=== PATIENT | male | born 1970 | race Caucasian/White ===

== ENCOUNTER 2017-05-23 17:33 | Emergency (ER) | payer BC, SELFPAY ==
[2017-05-23 17:56] VITALS: BP 221/100; PULSE 106; RESP 22; TEMP 38.2; O2SAT 95; BMI 40.1
--- NOTE | 2017-05-23 18:25 | HMH.EDUTC ---
[facility] [place] Clinical Impression: Strep throat Disposition: Home, Self-Care Condition on Discharge: Good Instructions: DI for Strep Throat, Strep Throat, Strep Throat (Alternative Therapy) Additional Instructions: * Monitor Temp. Tylenol and/or Ibuprofen as needed. ER if fever is no less than 101 despite alternating Tylenol and Ibuprofen * Encourage fluids, water, Gatorade, powerade, pedialyte if /toddler/or child * Warm salt water gargles for throat irritation *Warm fluids *Sore throat lozenges *Sleep elevated *humidifier or vaporizer Lots of rest Increase fluids, water, Gatorade, powerade *change toothbrush and toothpaste 24-48 hours after starting to take antibiotics so you do not reinfect yourself Monitor Temp. Tylenol and/or Ibuprofen as needed. ER if fever is no less than 101 despite alternating Tylenol and Ibuprofen * Encourage fluids, water, Gatorade, powerade, pedialyte if /toddler/or child *Cold fluids, popsicles and ice cream may feel good on his throat * Follow up IMMEDIATELY for new or worsening of symptoms OR no noticeable improvement over the next 48-72 hours. 911 immediately for any life threatening symptoms such as chest pain or difficulty breathing Forms: Work/School Release Time of Disposition: 18:35 Medical Decision Making - Medical Records Medical records reviewed: Yes: I reviewed the patient's medical records. Vital Signs: 05/23/17 17:56 Temperature 100.7 F H Temperature Source Temporal Artery Scan Pulse Rate [Right Radial] 106 H Respiratory Rate 22 Blood Pressure [Right Arm] 221/100 Blood Pressure Mean [Right Arm] 140 02 Sat by Pulse Oximetry 95 Oxygen Delivery Method Room Air - Lab Data Lab results reviewed: Yes: I reviewed the patient's lab results. - Sridhar Inquiry Pt receiving controlled substance: No Sridhar was queried for this patient: No - Reevaluation(s) Time: 18:34 Reevaluation #1: Patient state that he has taken Penicillin before with no reaction [facility] [place] - General Stated complaint: Throat swollen, fever Mode of Arrival: Family Vehicle Source of Information: Patient Limitations: No Limitations Description of Symptoms (Recalled from Triage Doc. by RN): PT C/O SWOLLEN SORE THROAT. HEENT Symptoms (Recalled from RN notes): Yes (SWOLLEN SORE THROAT) Resp Symptoms (Recalled from RN notes): No Skin Symptoms (Recalled from RN notes): No MS Symptoms (Recalled from RN notes): No Functional Status (Recalled from RN notes): NA - History of Present Illness Provider Complaint: Patient state that yesterday he started getting sick State that his throat felt sore and he noticed that it was swelling State that today his throat continued to get worse and now this evening his throat is swollen red and he noticed white patches in the back of his throat State that he did this before when he had strep throat - Related Data Home Medications Medication Instructions Recorded Confirmed No Known Home Medications [No 05/23/17 05/23/17 Known Home Medications] Allergies Allergy/AdvReac Type Severity Reaction Status Date / Time No Known Allergies Allergy Verified 05/23/17 17:41 - Worker's Comp Is this a Worker's Comp case?: No H History I have reviewed the patient's past medical history: Yes Medical History: Reports:: Diabetes Mellitus Type 2 Denies:: Cancer, Diabetes Mellitus Type 1, MRSA Amputation: No Fractures: No - Social History Smoking Status: Current every day smoker Tobacco Type: cigarettes Alcohol Intake: never - Psychiatric History Expresses thoughts of harming self/others: None Suicide Plan Description: No Plan ROS Obtained: Yes All systems reviewed & no additional complaints - Constitutional Constitutional: Reports chills, Reports fever(s) - ENT Ears, Nose, Mouth, and Throat: Reports sore throat, Reports throat swelling - Respiratory Respiratory: Yes cough, No dyspnea Physical Exam - General General a
--- NOTE | 2017-05-23 18:32 | ED_ITS ---
[facility] [place] Clinical Impression: Strep throat Disposition: Home, Self-Care Condition on Discharge: Good Instructions: DI for Strep Throat, Strep Throat, Strep Throat (Alternative Therapy) Additional Instructions: * Monitor Temp. Tylenol and/or Ibuprofen as needed. ER if fever is no less than 101 despite alternating Tylenol and Ibuprofen * Encourage fluids, water, Gatorade, powerade, pedialyte if /toddler/or child * Warm salt water gargles for throat irritation *Warm fluids *Sore throat lozenges *Sleep elevated *humidifier or vaporizer Lots of rest Increase fluids, water, Gatorade, powerade *change toothbrush and toothpaste 24-48 hours after starting to take antibiotics so you do not reinfect yourself Monitor Temp. Tylenol and/or Ibuprofen as needed. ER if fever is no less than 101 despite alternating Tylenol and Ibuprofen * Encourage fluids, water, Gatorade, powerade, pedialyte if /toddler/or child *Cold fluids, popsicles and ice cream may feel good on his throat * Follow up IMMEDIATELY for new or worsening of symptoms OR no noticeable improvement over the next 48-72 hours. 911 immediately for any life threatening symptoms such as chest pain or difficulty breathing Forms: Work/School Release Time of Disposition: 18:35 Medical Decision Making - Medical Records Medical records reviewed: Yes: I reviewed the patient's medical records. Vital Signs: 05/23/17 17:56 Temperature 100.7 F H Temperature Source Temporal Artery Scan Pulse Rate [Right Radial] 106 H Respiratory Rate 22 Blood Pressure [Right Arm] 221/100 Blood Pressure Mean [Right Arm] 140 02 Sat by Pulse Oximetry 95 Oxygen Delivery Method Room Air - Lab Data Lab results reviewed: Yes: I reviewed the patient's lab results. - Sridhar Inquiry Pt receiving controlled substance: No Sridhar was queried for this patient: No - Reevaluation(s) Time: 18:34 Reevaluation #1: Patient state that he has taken Penicillin before with no reaction [facility] [place] HPI - General Stated complaint: Throat swollen, fever Mode of Arrival: Family Vehicle Source of Information: Patient Limitations: No Limitations Description of Symptoms (Recalled from Triage Doc. by RN): PT C/O SWOLLEN SORE THROAT. HEENT Symptoms (Recalled from RN notes): Yes (SWOLLEN SORE THROAT) Resp Symptoms (Recalled from RN notes): No Skin Symptoms (Recalled from RN notes): No MS Symptoms (Recalled from RN notes): No Functional Status (Recalled from RN notes): NA - History of Present Illness Provider Complaint: Patient state that yesterday he started getting sick State that his throat felt sore and he noticed that it was swelling State that today his throat continued to get worse and now this evening his throat is swollen red and he noticed white patches in the back of his throat State that he did this before when he had strep throat - Related Data Home Medications Medication Instructions Recorded Confirmed No Known Home Medications [No 05/23/17 05/23/17 Known Home Medications] Allergies Allergy/AdvReac Type Severity Reaction Status Date / Time No Known Allergies Allergy Verified 05/23/17 17:41 - Worker's Comp Is this a Worker's Comp case?: No [facility] History I have reviewed the patient's past medical history: Yes Medical History: Reports:: Diabetes Mellitus Type 2 Denies:: Cancer, Diabetes M
[2017-05-23 18:52] VITALS: BP 170/98; PULSE 78; RESP 20; TEMP 37.2; O2SAT 97
[2017-05-29 15:57] LABS: UTC Influenza A Antigen Negative (Negative); UTC Influenza B Antigen Negative (Negative); UTC Strep Screen (Rapid) Positive (Negative)
== END 2017-05-23 18:53 | disposition home or self-care (01) ==
PROVIDERS: Emergency Provider Nurse Practitioner; Family Provider Family Medicine
DX: J02.0 Streptococcal pharyngitis (principal); F17.210 Nicotine dependence, cigarettes, uncomplicated
CPT/HCPCS: 87804; 87880; 96372; 99202; 99203; J0561

== ENCOUNTER → 2018-06-14 19:02 | Outpatient (CLI) | payer BC, SELFPAY ==
[2018-06-14 19:27] LABS: Hemoglobin A1C 5.7 % (0.0-7.0)
[2018-06-14 19:34] LABS: Chol/HDL Ratio 5.3 (1-3.5); Cholesterol 171 mg/dL (140-200); HDL Cholesterol 32 mg/dL (27-67); LDL Cholesterol 106 mg/dL (0-130); T4 (Thyroxine) 10.7 ug/dl (4.7-13.3); Thyroid Stimulating Hormone 1.79 uIU/ml (0.358-3.740); Triglycerides 166 mg/dL (30-200); VLDL Cholesterol 33 mg/dL (0-40)
[2018-06-16 09:16] LABS: Creatinine, Urine 157.1 mg/dL (Not Estab.); Microalbumin, Urine 26.8 ug/mL (Not Estab.)
[2018-06-18 08:20] LABS: Vitamin D 25 Hydroxy 12.4 ng/mL (30.0-100.0)
== END ==
PROVIDERS: Visit Provider Nurse Practitioner Family
DX: E11.9 Type 2 diabetes mellitus without complications (principal)
CPT/HCPCS: 80061; 82043; 82570; 82652; 83036; 84436; 84443

== ENCOUNTER → 2018-06-22 12:53 | Outpatient (CLI) | payer BC, SELFPAY ==
[2018-06-22 14:35] LABS: Anion Gap 10.5 mEq/L (5-15); Blood Urea Nitrogen 21 mg/dL (7-18); Calcium 9.5 mg/dL (8.5-10.1); Carbon Dioxide 34 mmol/L (21.0-32.0); Chloride 97 mmol/L (98-107); Creatinine,Serum 1.32 mg/dL (0.70-1.30); Estimated Glomerular Filt Rate 58 ml/min (>60); GFR (African American) 71 ML/MIN (>60); Glucose 84 mg/dL (74-106); Potassium 4.5 mmoL/L (3.5-5.1); Sodium 137 mmol/L (136-145)
== END ==
PROVIDERS: PCP Nurse Practitioner Family; Visit Provider Internal Medicine Cardiovascular Disease
DX: I10 Essential (primary) hypertension (principal); R06.00 Dyspnea, unspecified; R94.31 Abnormal electrocardiogram [ECG] [EKG]; Z72.0 Tobacco use
CPT/HCPCS: 36415; 80048

== ENCOUNTER → 2018-07-20 11:41 | Outpatient (CLI) | payer BC, SELFPAY | PROVIDERS: PCP Emergency Medicine; Visit Provider Internal Medicine Cardiovascular Disease | DX: G47.33 Obstructive sleep apnea (adult) (pediatric) (principal); I10 Essential (primary) hypertension; R06.00 Dyspnea, unspecified; R06.01 Orthopnea; R94.31 Abnormal electrocardiogram [ECG] [EKG]; Z72.0 Tobacco use | CPT/HCPCS: 95806 ==

== ENCOUNTER → 2018-07-23 07:52 | Outpatient (CLI) | payer BC, SELFPAY ==
--- NOTE | 2018-07-23 07:57 | CT_ITS ---
CT chest wo con HISTORY: Shortness of air, cough, tobacco use ITS.REASON: Long-term tobacco abuse ORDERING PHYSICIAN: Antonino Du MD PATIENT AGE: 48 years COMPARISON: None Technique: Axial images obtained. Sagittal, and coronal reformatted images are also generated and reviewed. All CT scans at the facility use one or more dose reduction, viz: automated exposure control, ma/kV adjustment per patient size (including targeted exams where dose is matched to indication, i.e. head), or iterative reconstruction technique. FINDINGS: Normal heart size. There is mild dilatation of the ascending aorta measuring up to 4.3 cm in transverse dimension. No obvious coronary artery calcification. There are scattered small lymph nodes in the axilla with a few small mediastinal nodes. No enlarged nodes apparent. Hyperinflation with attenuation of the peripheral pulmonary vessels consistent with COPD. There is a flat-like density in the right middle lobe at 11 mm probably due to an area of scarring. A 3 mm noncalcified nodule present in the right lower lobe. There is mild diffuse bronchial thickening. No lobar consolidation or collapse is evident. There are 2 noncalcified nodular densities in the left lower lobe measuring 3 and 4 mm on axial image #73. An additional noncalcified 5 mm nodule is present in the left lower lobe posterior laterally image #68 fissural nodule noted on axial image #55 at 4 mm. Upper abdominal images show a few scattered small lymph nodes at the celiac axis measuring up to 13 mm. There is some mild wedging of T9 and T11 with sclerosis along the inferior endplate. A lucent lesion is present along the inferior left aspect of the T9 vertebral body. IMPRESSION: 1. Scattered small bilateral pulmonary nodules as detailed above which are probably benign. Recommend 6 month follow-up in this patient with smoking history and cough 2. Mild dilatation of ascending aorta at 4.3 cm. 3. Small lucent lesion involves the T9 vertebral body anteriorly and on the left. This is fairly well-circumscribed and probably benign. Follow-up suggested with the chest CT
== END ==
PROVIDERS: PCP Nurse Practitioner Family; Visit Provider Internal Medicine Cardiovascular Disease
DX: I10 Essential (primary) hypertension (principal); R06.00 Dyspnea, unspecified; R06.01 Orthopnea; R94.31 Abnormal electrocardiogram [ECG] [EKG]; Z72.0 Tobacco use
CPT/HCPCS: 71250

== ENCOUNTER → 2018-07-30 06:36 | Outpatient (CLI) | payer BC, SELFPAY ==
--- NOTE | 2018-07-30 06:37 | CA_ITS ---
PROCEDURE: 2-D M-mode and color Doppler study INDICATIONS FOR THE TEST: Chest pain COPDX Heart Murmur Tobacco SmokingX Palpitations Fatigue Syncope Edema HypertensionXDiabetes Mellitus Rheumatic Fever SOBXDOE ObesityXHyperlipidemia Family History HD Additional History ABN EKG,SUBSTANCE ABUSE PATIENT INFORMATION HEIGHT: 70 WEIGHT:285 GENDER: Male B/P:140/84 2-D/M-MODE INTERPRETATION: 2-D MEASUREMENTS OBSERVED VALUES IN CMS Right Ventricular Dimension (RVDd) 3.0 Interventricular Septum (Thickness)(IVsd) 1.4 Left Ventricular Internal Dimensions(LVIDd) 5.1 Left Ventricular Posterior Wall (Thickness)(LVPWd) 1.4 Aortic Root 3.8 Aortic Cusp Separation 2.0 Left Atrial Dimensions (LAD) 3.3 2D 1. Left atrium is mildly enlarged, left ventricle is normal size, mild concentric left ventricular hypertrophy, visually estimated ejection fraction 50%, endocardial surfaces are poorly visualized, there appears to be mild hypokinesis involving the distal septum and apical wall. A repeat study with Definity contrast is recommended 2. The right atrium and right ventricle are mildly enlarged with normal contractility. 3. The aortic valve is minimally thickened and fibrosed. 4. The mitral and tricuspid valve are grossly normal. 5. The pulmonic valve is poorly visualized . 6. No significant pericardial effusion noted. DOPPLER INTERROGATION: Doppler interrogation of the aortic, mitral and tricuspid valvular presence of mild mitral and tricuspid regurgitation, tricuspid regurgitation jet velocity is inadequate for calculation of the right ventricular systolic pressure, grade 1 diastolic dysfunction seen with tissue Doppler evidence of raised left atrial pressure. CONCLUSION: 1. Biatrial enlargement, normal left ventricular size, mild concentric left ventricular hypertrophy, visually estimated ejection fraction 50%, with segmental wall motion abnormality described above, endocardial surface of poorly visualized, repeat study with Definity contrast is recommended. 1 diastolic dysfunction seen with tissue Doppler evidence of raised left atrial pressure. 2. Mildly enlarged right ventricle with normal contractility. 3. Mild mitral and tricuspid regurgitation 4. No significant pericardial effusion noted.
--- NOTE | 2018-07-30 06:37 | CI_ITS ---
Cerebrovascular Exam Indications: 785.9 Bruit. IMPRESSIONS 1. The bilateral vertebral arteries are patent with normal antegrade flow. 2. Study suggests less than 20% stenosis involving the right internal carotid artery and the left internal carotid artery. 3. Tortuous carotid arteries seen bilaterally. Pt bifurcates high . Carotid duplex study. Complete study and Doppler flow study including spectral analysis, color and [place] scale imaging. Height: Height: 177.8cm. Height: 70in. Weight: Weight: 129.3kg. Weight: 284.4lb. Body mass index: BMI: 40.9kg/m^2. Body surface area: BSA: 2.58m^2. Location: Vascular laboratory. Patient status: Outpatient. Tables: Arterial flow: + +--------+--------+ Location V sys V ed + +--------+--------+ Right CCA - proximal 116cm/s 20.4cm/s + +--------+--------+ Right CCA - distal 77.8cm/s 24.4cm/s + +--------+--------+ Right ECA 95.3cm/s -------- + +--------+--------+ Right ICA - proximal 48.6cm/s 16cm/s + +--------+--------+ Right ICA - mid 81.9cm/s 28.7cm/s + +--------+--------+ Right ICA - distal 71.4cm/s 36.1cm/s + +--------+--------+ Right vertebral 35.8cm/s -------- + +--------+--------+ Left CCA - proximal 125cm/s 22.1cm/s + +--------+--------+ Left CCA - distal 83.8cm/s 18.7cm/s + +--------+--------+ Left ECA 100cm/s -------- + +--------+--------+ Left ICA - proximal 78.9cm/s 31.4cm/s + +--------+--------+ Left ICA - mid 69.5cm/s 23.4cm/s + +--------+--------+ Left ICA - distal 86.9cm/s 38.5cm/s + +--------+--------+ Left vertebral 37.5cm/s -------- + +--------+--------+ Velocity ratios: + + + + + + Right, V sys Right, V ed Left, V sys Left, V ed + + + + + + Max ICA/dist CCA 1.05 1.48 1.04 2.06 + + + + + + (Report amended ) Electronically signed by: Rajan aClvert [id number]
--- NOTE | 2018-07-30 06:37 | NM_ITS ---
CARDIOLITE SPECT MYOCARDIAL PERFUSION LEXISCAN, REST AND STRESS: [facility] REVIEW QGS EF AND WALL MOTION EVALUATION: QPS - PERFUSION EVALUATION HISTORY: Chest pain, Syncope, HTN, Tobacco use, Family history DOSE: 10.55 mCi technetium 99m mibi intravenously at rest followed by 32.9 mCi technetium 99m mibi following the intravenous ministration of 0.4 mg of Lexiscan. Resting blood pressure is 164/102. Stress blood pressure 153/86. FINDINGS: Ejection fraction is calculated to be 42%. Stress images reveal transient left ventricular dilatation with reduced ejection fraction throughout the inferior wall apex and a portion of the septum. Rest images reveal improved activity in the inferior apical septal wall with mild left ventricular dilatation IMPRESSION: High risk abnormal stress test test with transient left ventricular dilatation accompanied by a large degree of inferior wall apical and septal ischemia mixed with nontransmural myocardial infarction. Left ventricular dysfunction inferior apical hypokinesis.
--- NOTE | 2018-07-30 07:33 | HMH.ITSHM ---
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 []METOPROLOL LISINOPRIL VIT D2 VIT D3 ASA AMLODIPINE
== END ==
PROVIDERS: PCP Emergency Medicine; Visit Provider Internal Medicine Cardiovascular Disease
DX: I10 Essential (primary) hypertension (principal); R06.00 Dyspnea, unspecified; R06.01 Orthopnea; R94.31 Abnormal electrocardiogram [ECG] [EKG]; Z72.0 Tobacco use
CPT/HCPCS: 78452; 93017; 93306; 93880; A9502; J2785

== ENCOUNTER 2018-08-21 08:17 | Day surgery (SDC) | payer BC, SELFPAY ==
[2018-08-21] VITALS (13 sets, daily range): BP systolic 115–205; BP diastolic 71–124; PULSE 53–70; RESP 16–20; TEMP 36.6; O2SAT 92–100; BMI 41.4
--- NOTE | 2018-08-21 | IR_ITS ---
CARDIAC CATHETERIZATION DATE OF CATHETERIZATION:08/21/2018 10:52 AM PROCEDURES: 1. Left heart catheterization 2. Left ventriculogram 3. Selective coronary angiogram INDICATION FOR TEST: 1. Known coronary artery disease 2. Abnormal Myoview 3. Angina pectoris Informed consent was obtained prior to the procedure. COMPLICATIONS: None ESTIMATED BLOOD LOSS: Less than 10 ml. TECHNIQUE: One percent lidocaine used to anesthetize the right anterior aspect of the wrist. The right radial artery was accessed via the Seldinger technique. A 6 [place] sheath was placed in the right radial artery. 2.5 mg of verapamil, 800 mcg of nitroglycerin, 1mg Lidocaine and 5000 U Heparin were given through the arterial sheath. The trap catheter and JL 3.5 catheter was also used to perform left heart catheterization, left ventriculogram and selective coronary angiogram. At the end of the procedure the sheath was removed good hemostasis was achieved using Traclet band, patient was transferred to the postop holding area in stable condition . ANGIOGRAPHIC RESULTS: 1. The left main artery has distal 30% stenosis 2. The left anterior descending artery has an ostial 10-20% stenosis followed by mid vessel 30% stenosis 3. The circumflex artery gives rise to a large ramus intermedius which has an ostial 30% stenosis and mid vessel 10-20% stenoses are the true circumflex artery has tendon 20% stenoses 4. The right coronary artery is a dominant vessel and has proximal 20% mid vessel 30% stenoses distal 20 and 30% stenoses 5. The PASCUAL ventriculogram reveals preserved at 55% 6. The left ventricular end-diastolic pressure 20 mmHg IMPRESSION: 1. Mild to moderate coronary artery disease as described above 2. Preserved ejection fraction 3. Persistent elevated LVEDP consistent with diastolic dysfunction PLAN: 1. Medical management 2. Aggressive risk factor modification
[2018-08-21 09:06] LABS: Basophils # 0.1 K/mm3 (0-0.2); Basophils % 1.3 % (0.1-2.0); Eosinophils # 0.3 K/mm3 (0.0-0.4); Eosinophils % 3.6 % (0.1-12.0); Hematocrit 47.4 % (42.0-52.0); Hemoglobin 16.7 g/dL (14.1-18.0); Lymphocytes # 2.3 K/mm3 (0.7-4.5); Lymphocytes % 29.8 % (10-50); Mean Corpuscular HGB Conc 35.3 g/dL (31.8-35.4); Mean Corpuscular Hemoglobin 30.9 pg (27.0-31.2); Mean Corpuscular Volume 87.7 fl (80-94); Mean Platelet Volume 7.6 fl (7.4-10.4); Monocytes # 0.7 K/mm3 (0.1-1.0); Monocytes % 8.7 % (1.7-9.3); Neutrophils # 4.3 K/mm3 (1.8-7.8); Neutrophils % 56.5 % (37.0-80.0); Platelet Count 338 K/mm3 (142-424); Red Cell Distribution Width 13.2 % (11.5-17.5); White Blood Count 7.6 K/mm3 (4.8-10.8)
[2018-08-21 09:10] LABS: Anion Gap 11.6 mEq/L (5-15); Blood Urea Nitrogen 22 mg/dL (7-18); Calcium 8.6 mg/dL (8.5-10.1); Carbon Dioxide 30 mmol/L (21.0-32.0); Chloride 102 mmol/L (98-107); Creatinine Clearance Estimated 82 mL/min (50-200); Creatinine,Serum 1.16 mg/dL (0.70-1.30); Estimated Glomerular Filt Rate 68 ml/min (>60); GFR (African American) 82 ML/MIN (>60); Glucose 92 mg/dL (74-106); Potassium 3.6 mmoL/L (3.5-5.1); Sodium 140 mmol/L (136-145)
== END 2018-08-21 14:54 | disposition home or self-care (01) ==
LOC: CATHLAB 08:18
PROVIDERS: PCP Emergency Medicine; Visit Provider Internal Medicine
DX: I25.118 Atherosclerotic heart disease of native coronary artery with other forms of angina pectoris (principal); I50.30 Unspecified diastolic (congestive) heart failure; I11.0 Hypertensive heart disease with heart failure; Z72.0 Tobacco use; E66.01 Morbid (severe) obesity due to excess calories; Z68.41 Body mass index [BMI] 40.0-44.9, adult; Z82.49 Family history of ischemic heart disease and other diseases of the circulatory system; Z79.899 Other long term (current) drug therapy
CPT/HCPCS: 80048; 85025; 93458; 99152; C1725; C1760; C1769; J1644

== ENCOUNTER 2020-05-18 11:09 | Emergency (ER) | payer BC, SELFPAY ==
[2020-05-18 11:17] VITALS: BP 165/70; PULSE 84; RESP 16; TEMP 36.8; O2SAT 98; BMI 25.8
[2020-05-18 11:30] VITALS: BP 165/70; PULSE 84; RESP 16; TEMP 36.8; O2SAT 98; BMI 25.7
--- NOTE | 2020-05-18 11:45 | XR_ITS ---
PROCEDURE: XR THORACIC SPINE 3V CLINICAL INDICATION: pain COMPARISON: CR CXR2V XR chest 2V from 06/12/[address] chest wo con from 07/23/2018 FINDINGS: There are degenerative changes in the thoracic spine at multiple levels. No acute fracture or dislocation evident there is mild chronic wedging T9. No lytic or blastic change. IMPRESSION: Chronic changes, no acute finding. Dictated by: Rajan Calvert MD 05/18/2020 12:12 Rajan Calvert MD in [place] 05/18/2020 12:12
--- NOTE | 2020-05-18 11:57 | HMH.EDUTC ---
[facility] [place] Clinical Impression: Thoracic back pain Qualifiers: Chronicity: acute Back pain laterality: midline Qualified Code(s): M54.6 - Pain in thoracic spine Disposition: Home, Self-Care Condition on Discharge: Good Instructions: DI for Thoracic Back Pain, Thoracic Back Pain Additional Instructions: Go home and rest. It would be best if you rested tomorrow too. No heavy lifting. No twisting. Take the oral medications as directed. The muscle relaxer (robaxin) will make you drowsy, so don't drive or operate heavy machinery after taking it. Don't start the oral steroids (medrol dose pack) until tomorrow, since you had the shots in here today. Follow up with your regular doctor. GO TO THE ER FOR ANY WORSENING SYMPTOMS OR CONCERN, ESPECIALLY BOWEL OR BLADDER ISSUES, SADDLE AREA NUMBNESS, FEVER, ETC Prescriptions: methylPREDNISolone [Medrol] 4 mg PO DIRECTED 6 Days #21 tab.ds.pk Transmission Status: Received by [id number] Methocarbamol [Robaxin 500mg Tab] 500 mg PO BIDP PRN #30 tab PRN Reason: Muscle Spasm Transmission Status: Received by [id number] Referrals: Tony Hester MD [Primary Care Provider] - Time of Disposition: 12:53 Medical Decision Making - Medical Records Medical records reviewed: No: I reviewed the patient's medical records. - Sridhar Inquiry Pt receiving controlled substance: No Vital Signs: 05/18/20 11:17 05/18/20 11:30 05/18/20 12:54 Temperature 98.3 F 98.3 F 98.3 F Temperature Source Oral Oral Pulse Rate 84 Pulse Rate [Right] 84 84 Respiratory Rate 16 16 16 Blood Pressure 165/70 H Blood Pressure [Right Arm] 165/70 H 165/70 H Blood Pressure Mean [Right Arm] 101 101 Blood Pressure Source [Right Arm] Automatic Cuff Automatic Cuff Blood Pressure Position [Right Arm] Sitting Sitting 02 Sat by Pulse Oximetry 98 98 Oxygen Delivery Method Room Air Room Air Orders (Tests/Meds): ED MEDICATIONS Discontinued Medications Generic Name Dose Route Start Last Admin Trade Name Freq PRN Reason Stop Dose Admin Ketorolac Tromethamine 60 mg 05/18/20 12:25 05/18/20 12:30 Ketorolac 60mg/2ml Vial IM 05/18/20 12:26 60 mg ONCE ONE Administration Methylprednisolone Sodium Succinate 125 mg 05/18/20 12:25 05/18/20 12:30 Methylprednisolone Sod Succ 125mg Vial IM 05/18/20 12:26 125 mg ONCE ONE Administration - Radiology Data #1 Image(s): T-Spine Image Reviewed: Yes I reviewed the patient's radiology image, Yes I have reviewed radiologist's interpretation Preliminary Findings: Normal/NAD, No Fracture Seen [facility] [place] HPI - General Stated complaint: something popped back Time Seen by Provider: 05/18/20 11:57 Mode of Arrival: Ambulatory Source of Information: Patient Limitations: No Limitations Description of Symptoms (Recalled from Triage Doc. by RN): pt advises he was sitting at the table when he felt something pop in between his shoulders and is now having pain - History of Present Illness Provider Complaint: He states that yesterday he was eating dinner when he felt something pop in his upper back. Since then he has had pain and tenderness of the area between his shoulder blades. He denies any fever or chills. - Related Data Previous Rx's Medication Instructions Recorded cholecalciferol (vitamin D3) 125 5,000 unit PO DAILY #30 cap 06/18/18 mcg (5,000 unit) capsule ergocalciferol (vitamin D2) 1,250 50,000 unit PO QWEEK #4 cap 06/18/18 mcg (50,000 unit) capsule lisinopril 20 2 tab PO DAILY 30 Days #60 tab 06/20/18 mg-hydrochlorothiazide 12.5 mg tablet aspirin 81 mg tablet,delayed 81 mg PO DAILY #30 tab 06/22/18 release amlodipine 10 mg tablet 10 mg PO DAILY #30 tab 08/10/18 Acetaminophen 1,000 mg PO TID PRN #60 tab 04/16/19 Ibuprofen [Ibuprofen 600mg 600 mg PO Q6H #30 tab 04/16/19 Tablet] Methocarbamol [Robaxin 500mg Tab] 500 mg PO BIDP PRN #30 tab 05/18/20 methylPREDNISolone [Medrol]
[2020-05-18 12:54] VITALS: BP 165/70; PULSE 84; RESP 16; TEMP 36.8; O2SAT 98
== END 2020-05-18 12:58 | disposition home or self-care (01) ==
LOC: ER 11:17 → UTC 11:17
PROVIDERS: Emergency Provider Nurse Practitioner Family; PCP Emergency Medicine
DX: M54.6 Pain in thoracic spine (principal); I10 Essential (primary) hypertension; F17.210 Nicotine dependence, cigarettes, uncomplicated; Z79.899 Other long term (current) drug therapy
CPT/HCPCS: 72072; 96372; 99202; G0463

== ENCOUNTER → 2020-10-29 13:32 | Outpatient (CLI) | payer OTHER, SELFPAY ==
--- NOTE | 2020-10-29 13:40 | XR_ITS ---
PROCEDURE: XR CHEST 2V CLINICAL HISTORY: ATHEROSCLEROSIS OF [place] CORONARY ARTERY Shortness of breath, cough COMPARISON: CR CXR CHEST(2 VIEWS-NOT PORTABLE) from 05/10/2016 CR CXR2V XR chest 2V from 06/12/[address] chest wo con from 07/23/2018 FINDINGS: The cardiomediastinal silhouette and pulmonary vascularity are within normal limits. The lungs are clear without infiltrates, suspicious nodules, or pleural effusions. There is a small metallic density overlying the left apex. No acute bony findings. IMPRESSION: No acute findings. Dictated by: Rajan Calvert MD 10/29/2020 16:02 Rajan Calvert MD in [place] 10/29/2020 16:02
--- NOTE | 2020-10-29 14:18 | ECG_ITS ---
APPROVED REPORT Exam: Resting ECG HR:75 bpm ECG Measurements Heart Rate 75 AXES [place] 182 P 31 QRSd 102 QRS -5 QT 402 T 39 QTc 448 Conclusion Normal sinus rhythm Normal ECG Electronically signed by : Augustin Brown MD 10/30/2020 11:38:13
[2020-10-29 14:27] LABS: Basophils # 0.2 K/mm3 (0-0.2); Basophils % 1.9 % (0.1-2.0); Eosinophils # 0.3 K/mm3 (0.0-0.4); Eosinophils % 2.9 % (0.1-12.0); Hematocrit 49.4 % (42.0-52.0); Hemoglobin 16.6 g/dL (14.1-18.0); Lymphocytes # 2.9 K/mm3 (0.7-4.5); Lymphocytes % 30.2 % (10-50); Mean Corpuscular HGB Conc 33.5 g/dL (31.8-35.4); Mean Corpuscular Hemoglobin 28.7 pg (27.0-31.2); Mean Corpuscular Volume 85.8 fl (80-94); Mean Platelet Volume 8.2 fl (7.4-10.4); Monocytes # 0.7 K/mm3 (0.1-1.0); Monocytes % 7.2 % (1.7-9.3); Neutrophils # 5.6 K/mm3 (1.8-7.8); Neutrophils % 57.9 % (37.0-80.0); Platelet Count 290 K/mm3 (142-424); Red Blood Count 5.76 M/mm3 (4.60-6.20); Red Cell Distribution Width 14.4 % (11.5-17.5); White Blood Count 9.7 K/mm3 (4.8-10.8)
[2020-10-29 14:43] LABS: Alanine Aminotransferase 25 U/L (12-78); Albumin Level 4.3 g/dl (3.5-5.0); Albumin/Globulin Ratio 1.1 (1.1-1.8); Alkaline Phosphatase 102 U/L (38-126); Anion Gap 16.5 mEq/L (5-15); Aspartate Amino Transferase 31 U/L (17-59); Bilirubin,Total 0.5 mg/dl (0.2-1.3); Blood Urea Nitrogen 14 mg/dl (9-20); Calcium 9.1 mg/dl (8.4-10.2); Carbon Dioxide 31 mmol/L (22.0-30.0); Chloride 98 mmol/L (98-107); Chol/HDL Ratio 5.6 (1-3.5); Cholesterol 207 mg/dl (140-200); Estimated Glomerular Filt Rate 80 ml/min (>60); GFR (African American) 97 ML/MIN (>60); Globulin 3.8 g/dL (1.3-3.2); Glucose 90 mg/dl (74-100); HDL Cholesterol 37 mg/dl (40-60); Potassium 4.5 mmoL/L (3.5-5.1); Sodium 141 mmol/L (136-145); Total Protein,Serum 8.1 g/dl (6.3-8.2); Triglycerides 123 mg/dl (30-150); VLDL Cholesterol 25 mg/dL (0-40)
[2020-10-29 14:54] LABS: NT Pro Brain Natriuretic Pep. 81.6 pg/mL (0-125)
[2020-10-29 14:56] LABS: Direct LDL Cholesterol 138.04 mg/dL (100-129)
== END ==
PROVIDERS: PCP Internal Medicine Adolescent Medicine; Visit Provider Internal Medicine Adolescent Medicine
DX: R07.9 Chest pain, unspecified (principal); I25.118 Atherosclerotic heart disease of native coronary artery with other forms of angina pectoris
CPT/HCPCS: 36415; 71046; 80053; 80061; 83036; 83880; 85025; 93005

== ENCOUNTER → 2020-11-05 11:15 | Outpatient (CLI) | payer OTHER, SELFPAY ==
[2020-11-05 12:03] LABS: Anion Gap 11.5 mEq/L (5-15); Blood Urea Nitrogen 15 mg/dl (9-20); Calcium 8.7 mg/dl (8.4-10.2); Carbon Dioxide 31 mmol/L (22.0-30.0); Chloride 100 mmol/L (98-107); Estimated Glomerular Filt Rate 71 ml/min (>60); GFR (African American) 86 ML/MIN (>60); Glucose 223 mg/dl (74-100); Potassium 4.5 mmoL/L (3.5-5.1); Sodium 138 mmol/L (136-145)
== END ==
PROVIDERS: Internal Medicine Cardiovascular Disease; Visit Provider Internal Medicine
DX: R06.00 Dyspnea, unspecified (principal); R07.9 Chest pain, unspecified; R42 Dizziness and giddiness; I25.118 Atherosclerotic heart disease of native coronary artery with other forms of angina pectoris; I10 Essential (primary) hypertension; E66.9 Obesity, unspecified; I51.89 Other ill-defined heart diseases; Z72.0 Tobacco use
CPT/HCPCS: 36415; 80048

== ENCOUNTER → 2020-12-03 08:50 | Outpatient (CLI) | payer OTHER, SELFPAY ==
--- NOTE | 2020-12-03 08:51 | CA_ITS ---
APPROVED REPORT EXAM: Comprehensive 2D, Doppler, and color-flow Echocardiogram Automation Test Developer: Cecily Hodges, AYESHA, RVS Ht: 5 ft 10 in Wt: 313lbs BSA: 2.53 BP: 166/100 mmHg Indications: New onset fatigue, Smoker, Morbid obesity, Cp, HTN, Dizziness, CAD, DD, IMANI 2D Dimensions IVSd 1.07 cm LVEF (Visual) 63.40 % PWd 1.32 cm LA Volume 99.00 mL LVDd 5.57 cm LA Volume Index 39.701512 mL/m2 (M/F) 16-34 LVDs 3.63 cm Left Atrium 2.70 cm LVOT 1.97 cm (M/F) 1.5-2.5 Ascending Aorta 3.31 cm M-Mode Dimensions LA Diam 3.99 cm (1.9-4.0) LVDd 5.55 cm (3.5-5.7) Ao Diam 3.72 cm (2.0-3.7) LVDs 3.67 cm (3.5-5.7) EF (Teich) 62.10% EPSs 1.08 cm FS 33.90% EDV (Teich) 150.50 mL TAPSE 3.14 (<1.7) ESV (Teich) 57.00 mL LV Diastology E Decel Time 265.00 (160-240 msec) E/A Ratio 0.99 MED E' 7.60 (< 7 cm/sec) MED A' 10.20 cm/s E'/MED E' Ratio 13.07 (>14) LAT E' 12.10 (<10 cm/sec) LAT A' 5.20 cm/s E/LAT E' Ratio 8.21 (>14) Aortic Valve LVOT Max 151.00 (70-110 cm/s) LVOT VTI 23.74 cm AoV Peak Vikash. 165.00 (50-130 cm/s) AO Peak GR. 10.90 mmHg AO Mean GR. 6.00 (<5 mmHg) AO VTI 28.85 (18-25 cm) LESLY (VTI) 2.51 (2.5-4.5 cm2) Mitral Valve MV E Max Vikash. 99.00 (40-130 cm/s) MV A Velocity 100.00 (40-130 cm/s) E/A Ratio 0.99 MV Decel. Time 265.00 (160-240 ms) MV Mean Gr. 2.90 (<2mmHg) MV PHT 78.00 ms Tricuspid Valve TR P. Velocity 149.00 cm/s RAP Estimate 10.00 mmHg RVSP 18.90 mmHg Left Ventricle Left atrium is mildly enlarged, left ventricle is normal size, mild concentric left ventricular hypertrophy, visually estimated ejection fraction 55% with no regional wall motion abnormality, grade 1 diastolic dysfunction seen without tissue Doppler evidence of raise left atrial pressure. Right Ventricle Right atrium and right ventricle are normal size and contractility. Aortic Valve Aortic valve is minimally thickened and fibrosed, there is no aortic stenosis or aortic insufficiency. Mitral Valve Mitral valve leaflets are not well visualized, the leaflets are minimally thickened, there is no mitral stenosis, there is mitral regurgitation present which is difficult to quantify it is likely in the [id number] range. Tricuspid Valve Tricuspid valve grossly normal, there is trace tricuspid regurgitation, tricuspid regurgitation jet velocity is inadequate for calculation of the right ventricular systolic pressure. Pulmonic Valve Pulmonic valve is poorly visualized. Great Vessels Aortic root is normal size. Inferior vena cava is poorly visualized. Pericardium No significant pericardial effusion noted Conclusion 1. Mildly low left atrium, normal left ventricular size, mild concentric left ventricular hypertrophy, visually estimated ejection fraction 55% with no regional wall motion abnormality, grade 1 diastolic dysfunction seen without tissue Doppler evidence of raise left atrial pressure. 2. There is mitral regurgitation present which is difficult to quantify, which is likely in mild to moderate range. The mitral regurgitation jet is very eccentrically directed. 3. No significant pericardial effusion noted. Electronically signed by : Antonino Du MD 12/04/2020 12:14:52
== END ==
PROVIDERS: PCP Internal Medicine Adolescent Medicine; Visit Provider Internal Medicine Cardiovascular Disease
DX: I50.30 Unspecified diastolic (congestive) heart failure (principal); I11.0 Hypertensive heart disease with heart failure
CPT/HCPCS: 93306

== ENCOUNTER 2021-01-01 06:56 | Day surgery (SDC) | payer OTHER, SELFPAY ==
[2021-01-01 07:04] VITALS: BMI 44.9
[2021-01-01 07:22] VITALS: BP 144/87; PULSE 67; RESP 18; O2SAT 98
--- NOTE | 2021-01-01 07:29 | P.PN_ITS ---
[facility] Anesthesia Checklist - Patient Identification Patient Identification: Arm Band - Structural Data Admitted From: Home Planned Operative Procedure/s: SISI Consent for Planned Operative Procedure(s) Verified: Yes - NPO Status Verified Time NPO: 00:00 - Airway Assessment C-Spine Mobility Assessed: Yes TMJ Mobility Assessed: Yes Dentition: Poor Dentition - Neurological Assessment Level of Consciousness: Awake Hx Seizures: No Numbness or tingling in extremities: No - Anesthesia Plan Anesthesia Risk discussed: Yes Anesthesia Plan: Verified ASA Class: III Anesthesia Type: MAC [facility] History I have reviewed the patient's past medical history: Yes Medical History: Reports:: Coronary Artery Disease, Heart Murmur, Hypertension, Valvular Heart Disease Denies:: Cancer, Diabetes Mellitus Type 1, Diabetes Mellitus Type 2, Internal Pacemaker, MRSA, Seizures *Have you ever received a pneumonia vaccine?: No *Have you received a flu vaccine this season?: No Anesthesia experience/problems:: None Other Surgeries: Yes: No Previous Surgery, Cardiac Catheterization. No: Pacemaker Amputation: No Fractures: No - *Social History Smoking Status: Current every day smoker Tobacco Type: cigarettes # Packs/Day (cigarettes): 1 #Yrs smoked (if former smoker): 25 Alcohol Intake: never Alcohol Intake Frequency:: holidays/special occasions only Substance Use Type: denies use *Occupational Status:: other Housing: apartment Household Members: spouse *Travel in the last 8 weeks: None Family Hx:: Hypertension, Heart Attack, Stroke, Cancer, Diabetes
[2021-01-01 07:32] LABS: Basophils # 0.1 K/mm3 (0-0.2); Basophils % 1.6 % (0.1-2.0); Eosinophils # 0.3 K/mm3 (0.0-0.4); Eosinophils % 4.1 % (0.1-12.0); Hematocrit 49.6 % (42.0-52.0); Hemoglobin 15.7 g/dL (14.1-18.0); Lymphocytes # 2.4 K/mm3 (0.7-4.5); Lymphocytes % 30.8 % (10-50); Mean Corpuscular HGB Conc 31.6 g/dL (31.8-35.4); Mean Corpuscular Hemoglobin 29.9 pg (27.0-31.2); Mean Corpuscular Volume 94.5 fl (80-94); Mean Platelet Volume 9.3 fl (7.4-10.4); Monocytes # 0.6 K/mm3 (0.1-1.0); Monocytes % 7.8 % (1.7-9.3); Neutrophils # 4.4 K/mm3 (1.8-7.8); Neutrophils % 55.8 % (37.0-80.0); Platelet Count 331 K/mm3 (142-424); Red Blood Count 5.25 M/mm3 (4.60-6.20); White Blood Count 7.8 K/mm3 (4.8-10.8)
[2021-01-01 08:30] VITALS: BP 174/110; PULSE 68; RESP 18; O2SAT 100
[2021-01-01 09:00] VITALS: BP 127/74; PULSE 70; RESP 18; O2SAT 100
--- NOTE | 2021-01-01 09:14 | SUR.OPER ---
SISI aborted due to patient declining respiratory status.
[2021-01-01 09:30] VITALS: BP 147/99; PULSE 68; RESP 18; O2SAT 100
--- NOTE | 2021-01-01 09:33 | SUR.PHASEII ---
0882 procedure aborted r/t decompensation of Respiratory status called office for pulmonary consult outpatient 0900 bk at bedside
--- NOTE | 2021-01-08 11:59 | HMH.PROC ---
[facility] Procedure Note Procedure Note:: Mr. Mcdonald was brought to the cardiac [employer] for purposes of a transesophageal echocardiogram to further define his mitral regurgitation on 01/01/2021. After informed consent was obtained, patient received sedation per anesthesia with subsequent significant hypoxemia and respiratory distress. This was treated promptly without complications but resulted in aborting of the SISI procedure. Consideration will be given to repeating this in the future once patient's pulmonary status has been adequately treated.
== END 2021-01-01 09:35 | disposition home or self-care (01) ==
PROVIDERS: PCP Internal Medicine Adolescent Medicine; Visit Provider Internal Medicine Cardiovascular Disease
DX: I34.0 Nonrheumatic mitral (valve) insufficiency (principal); R93.1 Abnormal findings on diagnostic imaging of heart and coronary circulation; Z20.822 Contact with and (suspected) exposure to COVID-19; Z53.09 Procedure and treatment not carried out because of other contraindication
CPT/HCPCS: 85025; 93312; C9803; U0003; U0005

== ENCOUNTER → 2021-01-21 13:17 | Outpatient (CLI) | payer OTHER, SELFPAY | PROVIDERS: PCP Internal Medicine Adolescent Medicine; Visit Provider Internal Medicine Pulmonary Disease | DX: R06.00 Dyspnea, unspecified (principal) | CPT/HCPCS: 94060; 94618; 94727; 94729 ==

== ENCOUNTER → 2021-01-27 14:55 | Outpatient (CLI) | payer OTHER, SELFPAY ==
[2021-01-27 15:25] VITALS: PULSE 88; PULSE 90
--- NOTE | 2021-01-27 15:36 | CT_ITS ---
PROCEDURE: CT CHEST WO CON CLINICAL INDICATION: lung nodules COMPARISON: CT CHESTWO CT chest wo con from 07/23/2018 TECHNIQUE: Axial images obtained with sagittal and coronal reformats. All CT scans at the facility use one or more dose reduction, viz: automated exposure control, ma/kV adjustment per patient size (including targeted exams where dose is matched to indication, i.e. head), or iterative reconstruction technique. FINDINGS: HEART AND MEDIASTINAL STRUCTURES: Thyroid gland is slightly prominent and may be better evaluated with ultrasound if clinically warranted. It is incompletely imaged on this exam. No mediastinal or hilar mass or adenopathy. There are few small calcified lymph nodes. Coronary artery calcifications noted of the RCA. No change in the minimal prominence of the ascending aorta at approximately 4 cm. LUNGS AND PLEURAL SPACES: COPD changes. 3 mm noncalcified nodule right lower lobe series 3, image 45 unchanged. Calcified granuloma right lower lobe posteriorly. Small nodules previously described in the left lower lobe are unchanged. BONY STRUCTURES: There are degenerative changes in the thoracic spine. A lucent lesion is once again noted at T9 on the left not significantly changed. Bony sclerosis is present involving the mid and inferior aspect of T5 which has developed in the interval. A small Schmorl's node is present along the inferior endplate of T5 which is also developed since the previous exam. Sclerosis also present involving the anterior superior aspect of T8 also developed since the previous study with anterior superior osteophyte. UPPER ABDOMEN: Few scattered small celiac nodes and periportal nodes are present. The most prominent node is in the periportal region at 3.8 x 1.6 cm previously at 3.8 by 1.9 cm. ADDITIONAL FINDINGS: Small bilateral axillary nodes are present not significantly changed IMPRESSION: 1. No change in the small pulmonary nodules with COPD changes. No new suspicious nodules identified. 2. Degenerative changes of the thoracic spine with new areas of bony sclerosis involving the T5 and T8 vertebral body associated with Schmorl's nodes. The sclerosis may be related to the underlying degenerative changes. No change in the lucent lesion at T9. MRI of the thoracic spine without and with contrast may provide further evaluation as sclerotic metastasis is included in the differential diagnosis. 3. Other nonacute findings as described above. Dictated by: Rajan Calvert MD 01/28/2021 07:54 Rajan Calvert MD in [place] 01/28/2021 07:54
== END ==
PROVIDERS: PCP Internal Medicine Adolescent Medicine; Visit Provider Internal Medicine Pulmonary Disease
DX: R06.00 Dyspnea, unspecified (principal); R91.8 Other nonspecific abnormal finding of lung field
CPT/HCPCS: 71250; 94060; 94640; 94727; 94729

== ENCOUNTER → 2021-04-16 15:01 | Outpatient (CLI) | payer OTHER, SELFPAY | PROVIDERS: PCP Internal Medicine Adolescent Medicine; Visit Provider Internal Medicine Pulmonary Disease | DX: R06.00 Dyspnea, unspecified (principal) | CPT/HCPCS: 94762 ==

== ENCOUNTER → 2021-05-31 13:43 | Outpatient (CLI) | payer OTHER, SELFPAY ==
[2021-05-31 15:22] LABS: Chloride 95 mmol/L (98-107); Sodium 133 mmol/L (136-145)
[2021-05-31 15:23] LABS: Potassium 4.7 mmoL/L (3.5-5.1)
[2021-05-31 15:25] LABS: Blood Urea Nitrogen 19 mg/dl (9-20); Estimated Glomerular Filt Rate 59 ml/min (>60); GFR (African American) 71 ML/MIN (>60)
[2021-05-31 15:26] LABS: Anion Gap 12.7 mEq/L (5-15); Calcium 8.8 mg/dl (8.4-10.2); Carbon Dioxide 30 mmol/L (22.0-30.0); Glucose 145 mg/dl (74-100)
[2021-05-31 15:35] LABS: NT Pro Brain Natriuretic Pep. 38.1 pg/mL (0-125)
== END ==
PROVIDERS: Visit Provider Internal Medicine Cardiovascular Disease
DX: R06.02 Shortness of breath (principal); I25.10 Atherosclerotic heart disease of native coronary artery without angina pectoris; I10 Essential (primary) hypertension
CPT/HCPCS: 36415; 80048; 83880

== ENCOUNTER 2022-02-23 09:03 | Day surgery (SDC) | payer OTHER, SELFPAY ==
[2022-01-31 13:44] VITALS: BMI 47.7
[2022-02-23 09:17] VITALS: BP 159/83; PULSE 88; RESP 18; TEMP 36.6; O2SAT 94
[2022-02-23 10:11] VITALS: O2SAT 91
--- NOTE | 2022-02-23 10:21 | EXP.ANES.CKL ---
PFSH PFS Medical History Dyspnea Hyperlipidemia Hypertension Mitral regurgitation Rheumatoid arthritis Surgical History No significant past surgical history Family History Other Family history of cancer Family history of diabetes mellitus type II Family history of hypertension Social History Smoking Status: Current every day smoker tobacco type: cigarettes packs per day: 1 pack-years: 30 alcohol intake: never substance use type: denies use current occupational status: unemployed Travel in the last 8 weeks: None adopted: No caregiver/support person: No foster care: No household members: significant other housing: house lives independently: Yes marital status: single current occupational exposures/hazards: No caffeine: Yes special sally needs: No agree to transfusion: No do you feel safe at home: Yes victim of physical abuse: No victim of emotional abuse: No victim of sexual abuse: No would you like helpful sources: No [facility] Anesthesia Checklist Patient Identification Patient Identification: Arm Band Structural Data Admitted From: Home Planned Operative Procedure/s: colonoscopy Consent for Planned Operative Procedure(s) Verified: Yes Verified Documents: Surgical Consent and History and Physical NPO Status Verified Time NPO: 00:00 Additional verifications Anesthesia Reactions: No Hx Blood Transfusions: No Blood Transfusion Reaction: No Airway Assessment C-Spine Mobility Assessed: Yes TMJ Mobility Assessed: Yes Dentition: Poor Dentition Neurological Assessment Level of Consciousness: Awake and Alert Anesthesia Plan Anesthesia Risk discussed: Yes Anesthesia Plan: Verified ASA Class: III Anesthesia Type: MAC
[2022-02-23 10:45] VITALS: BP 84/45; PULSE 75; RESP 14; TEMP 36.7; O2SAT 92
--- NOTE | 2022-02-23 10:45 | HMH.SCOPE ---
Procedure: Date: 02/23/22 Patient Date of :: 1970 Procedure Performed:: Colonoscopy Indications:: Screening Performing Provider:: Grupo Ruiz MD Referring Provider:: Augustin Brown MD Sedation:: See RN notes Procedure:: After placing the patient in the left lateral decubitus position, the colonoscopy was gently inserted into the rectum and under direct visualization advanced to the cecum which was identified by transillumination in the right lower quadrant, identification of the ileocecal valve, appendiceal orifice, and cecal strap. Color, texture, mucosa, and anatomy of the colon were carefully examined with the scope. Findings:: Anal canal: normal Rectum: Sessile polyp less than 5 mm in size. Removed with cold snare polypectomy. Internal hemorrhoids Sigmoid colon: Three polyps 7-8 mm in size. Removed with cold snare polypectomy Descending colon: Sessile polyp less than 5 mm in size. Removed with cold snare polypectomy .Fair preparation Splenic flexure: normal Transverse colon: normal without polyps or inflammatory changes Hepatic flexure: Fair preparation Ascending colon: Fair preparation Cecum: Sessile polyp less than 5 mm in size. Removed with cold snare polypectomy. Fair preparation Terminal ileum: not visualized Impression: Polyp of cecum Polyp of descending colon Polyps of distal sigmoid colon Polyp of rectum Recommendations:: Await pathology results Repeat colonoscopy in 3 years Complications:: None Estimated blood obtained (mL): 0
[2022-02-23 11:00] VITALS: BP 99/50; PULSE 77; RESP 16; O2SAT 95
[2022-02-23 11:15] VITALS: BP 110/67; PULSE 69; RESP 18; O2SAT 99
== END 2022-02-23 11:30 | disposition home or self-care (01) ==
PROVIDERS: PCP Internal Medicine Adolescent Medicine; Visit Provider Internal Medicine
PROC: 0DJD8ZZ Inspection of Lower Intestinal Tract, Via Natural or Artificial Opening Endoscopic (ICD-10-PCS; CPT 45378; principal; 2022-02-23 10:00)
DX: Z12.11 Encounter for screening for malignant neoplasm of colon (principal); K63.5 Polyp of colon; Z72.0 Tobacco use
CPT/HCPCS: 45385

== ENCOUNTER → 2022-03-02 10:12 | Outpatient (CLI) | payer OTHER, SELFPAY ==
--- NOTE | 2022-03-02 10:15 | XR_ITS ---
FINAL REPORT CLINICAL HISTORY: knee pain FINDINGS: 3 views of the left knee were obtained. There is no acute fracture or dislocation. There are mild degenerative changes. There is mild lateral patellar subluxation. There is no soft tissue abnormality. IMPRESSION: Mild degenerative change. Reviewed, Interpreted and Dictated by Adolfo Brock III, MD Transcribed by Kg Ansari Authenticated and [facility]
--- NOTE | 2022-03-02 10:15 | XR_ITS ---
FINAL REPORT CLINICAL HISTORY: knee pain FINDINGS: 3 views of the right knee were obtained. There is no acute fracture or dislocation. There is mild degenerative change. There is mild lateral patellar subluxation. A small joint effusion is present. IMPRESSION: Mild degenerative change with small joint effusion. Reviewed, Interpreted and Dictated by Adolfo Brock III, MD Transcribed by Kg Ansari Authenticated and . [facility]
== END ==
PROVIDERS: PCP Internal Medicine Adolescent Medicine; Visit Provider Orthopaedic Surgery
DX: M25.561 Pain in right knee (principal); M25.562 Pain in left knee
CPT/HCPCS: 73562

== ENCOUNTER → 2022-04-05 12:36 | Outpatient (CLI) | payer OTHER, SELFPAY ==
--- NOTE | 2022-04-05 12:37 | MR_ITS ---
FINAL REPORT CLINICAL HISTORY: right knee pain x 2 years after fall anterior and medial knee pain FINDINGS: Multiplanar MR imaging of the right knee was performed without contrast. There is a probable tear of the posterior horn of the medial meniscus. The lateral meniscus appears intact without evidence of meniscal tear. The anterior cruciate ligament appears intact. There is abnormal signal of the posterior cruciate ligament which is likely a partial tear. The medial collateral ligament and lateral ligamentous complex are intact. The quadriceps tendon appears intact. There is foci of patellar tendinitis. There is no evidence of fracture. There are mild degenerative changes. There is moderate medial compartment chondromalacia. There is a subchondral cyst in the proximal tibia. A small joint effusion is seen. The musculature is intact. No soft tissue mass or cyst is identified. IMPRESSION: Probable tear of the posterior horn of the medial meniscus. Abnormal signal of the posterior cruciate ligament, likely a partial tear. Foci of patellar tendinitis. Reviewed, Interpreted and Dictated by Adolfo Brock III, MD Transcribed by Melly Jones Authenticated and [facility][1]
== END ==
PROVIDERS: PCP Internal Medicine Adolescent Medicine; Visit Provider Orthopaedic Surgery
DX: M25.561 Pain in right knee (principal); M23.91 Unspecified internal derangement of right knee
CPT/HCPCS: 73721

== ENCOUNTER → 2022-07-27 10:58 | Outpatient (CLI) | payer OTHER, SELFPAY ==
--- NOTE | 2022-07-27 11:08 | ECG_ITS ---
APPROVED REPORT Exam: Resting ECG HR:70 bpm ECG Measurements Heart Rate 70 AXES IA 191 P 32 QRSd 102 QRS -22 QT 376 T 63 QTc 396 Conclusion SINUS RHYTHM BORDERLINE LEFT AXIS DEVIATION [QRS AXIS < -20] NONSPECIFIC T-WAVE ABNORMALITY BORDERLINE ECG UNCONFIRMED REPORT Electronically signed by : Augustin Brown MD 07/27/2022 21:17:26
--- NOTE | 2022-07-27 11:30 | XR_ITS ---
FINAL REPORT CLINICAL HISTORY: cough, sob, smoker, chest hurts all the time, pre op COMPARISON: 10/29/2020 FINDINGS: TWO-VIEW CHEST The heart size is normal. The mediastinum is normal. There is scarring at the bases. The lungs are otherwise clear. There is no pneumothorax. IMPRESSION: No acute cardiopulmonary process. Reviewed, Interpreted and Dictated by Rolf Conley MD Transcribed by Svetlana Olivares Authenticated and [facility]
[2022-07-27 11:43] LABS: Basophils # 0.1 K/mm3 (0-0.2); Basophils % 0.9 % (0.1-2.0); Eosinophils # 0.2 K/mm3 (0.0-0.4); Eosinophils % 2.3 % (0.1-12.0); Hematocrit 48.8 % (42.0-52.0); Hemoglobin 15.9 g/dL (14.1-18.0); Lymphocytes # 2.3 K/mm3 (0.7-4.5); Mean Corpuscular HGB Conc 32.6 g/dL (31.8-35.4); Mean Corpuscular Hemoglobin 31.1 pg (27.0-31.2); Mean Corpuscular Volume 95.2 fl (80-94); Mean Platelet Volume 8.8 fl (7.4-10.4); Monocytes # 0.5 K/mm3 (0.1-1.0); Monocytes % 6.7 % (1.7-9.3); Neutrophils # 4.9 K/mm3 (1.8-7.8); Neutrophils % 61.1 % (37.0-80.0); Platelet Count 234 K/mm3 (142-424); Red Blood Count 5.13 M/mm3 (4.60-6.20); Red Cell Distribution Width 13.4 % (11.5-17.5)
[2022-07-27 12:26] LABS: Chloride 97 mmol/L (98-107); Potassium 4.3 mmoL/L (3.5-5.1); Sodium 138 mmol/L (136-145)
[2022-07-27 12:29] LABS: Alanine Aminotransferase 41 U/L (12-78); Albumin Level 3.8 g/dl (3.5-5.0); Albumin/Globulin Ratio 1.2 (1.1-1.8); Alkaline Phosphatase 93 U/L (38-126); Anion Gap 15.3 mEq/L (5-15); Aspartate Amino Transferase 47 U/L (17-59); Bilirubin,Total 0.5 mg/dl (0.2-1.3); Blood Urea Nitrogen 16 mg/dl (9-20); Calcium 9.2 mg/dl (8.4-10.2); Carbon Dioxide 30 mmol/L (22.0-30.0); Estimated Glomerular Filt Rate 71 ml/min (>60); GFR (African American) 86 ML/MIN (>60); Globulin 3.3 g/dL (1.3-3.2); Glucose 140 mg/dl (74-100); Total Protein,Serum 7.1 g/dl (6.3-8.2)
== END ==
PROVIDERS: PCP Internal Medicine Adolescent Medicine; Visit Provider Orthopaedic Surgery
DX: Z01.818 Encounter for other preprocedural examination (principal); S83.241A Other tear of medial meniscus, current injury, right knee, initial encounter
CPT/HCPCS: 36415; 71046; 80053; 85025; 93005

== ENCOUNTER 2022-08-02 06:19 | Day surgery (SDC) | payer OTHER, SELFPAY ==
--- NOTE | 2022-08-01 08:55 | SUR.PREOP ---
0827- contacted patient to change procedure time to 0730. pt agreed to time change. reminded patient of npo after midnight and the need of a grab driver.
[2022-08-02] VITALS (12 sets, daily range): BP systolic 113–170; BP diastolic 68–85; PULSE 63–96; RESP 16–18; TEMP 36.2–43; O2SAT 91–96; BMI 47.3
--- NOTE | 2022-08-02 08:27 | EXP.ANES.CKL ---
[facility] Disclaimer: The information contained in this section may have been updated after the patient was seen, as this information can be updated by other users. Medical History Dyspnea Hyperlipidemia Hypertension Mitral regurgitation Rheumatoid arthritis Surgical History No significant past surgical history Family History Other Family history of cancer Family history of diabetes mellitus type II Family history of hypertension Social History Smoking Status: Current every day smoker tobacco type: cigarettes packs per day: 1 pack-years: 30 alcohol intake: never substance use type: denies use current occupational status: unemployed Travel in the last 8 weeks: None adopted: No caregiver/support person: No foster care: No household members: significant other housing: house lives independently: Yes marital status: single current occupational exposures/hazards: No caffeine: Yes special sally needs: No agree to transfusion: No do you feel safe at home: Yes victim of physical abuse: No victim of emotional abuse: No victim of sexual abuse: No would you like helpful sources: No [facility] Anesthesia Checklist Patient Identification Patient Identification: Arm Band Structural Data Admitted From: Home Planned Operative Procedure/s: Right Knee Arthroscopy Partial Medial Meniscectomy Consent for Planned Operative Procedure(s) Verified: Yes Verified Documents: Surgical Consent and History and Physical NPO Status Verified Time NPO: 00:00 Additional verifications Anesthesia Reactions: No Hx Blood Transfusions: No Blood Transfusion Reaction: No Airway Assessment C-Spine Mobility Assessed: Yes TMJ Mobility Assessed: Yes Dentition: Poor Dentition Neurological Assessment Level of Consciousness: Awake and Alert Anesthesia Plan Anesthesia Risk discussed: Yes Anesthesia Plan: Verified ASA Class: III Anesthesia Type: General
--- NOTE | 2022-08-02 08:28 | P.PNANES_ITS ---
[facility] Anesthesia Record Part I Anesthesia Record I Intake, IV Amount: 800 Estimated blood loss (mL): 0 Urine output (mL): 0 Blood Products used (#): none Blood Pressure: 170/81 SaO2: 91 Pulse Rate: 86 Respiratory Rate: 16 Temperature: 97.2 F Patient is:: Drowsy and Stable Stable to PACU at:: 08:25
--- NOTE | 2022-08-02 08:37 | EXP.OP.NOTE ---
Date of procedure: 08/02/22 Pre-op Diagnosis:: Right knee medial meniscus tear Post-op Diagnosis:: Right knee medial meniscus tear Procedure performed:: Right knee arthroscopy with partial medial meniscectomy Surgeon:: Kameron Thrasher MD Plate Mounter(s):: None COOK ENCHILADA:: Macario Brown Anesthesia: local and LMA Estimated blood loss (mL): 5 Clinical Note:: Magdy is a pleasant 52-year-old male who has been dealing with right knee pain over the past couple years since he felt a pop in his knee when he fell. A right knee cortisone injection in March provided temporary relief but his pain returned. An MRI in March of the right knee revealed undersurface flap tear posterior horn of the medial meniscus with mild medial and patellofemoral degenerative changes with a small effusion. We discussed all the risks, benefits and alternatives to right knee arthroscopy for partial medial meniscectomy. He agreed to proceed and a surgical consent form was signed. Operative findings:: Right knee undersurface flap tear posterior horn medial meniscus with significant fraying of the inner edge of the posterior horn. Mild medial compartment and trochlea chondromalacia. Cruciate ligaments intact. Lateral meniscus intact. Operative note:: The patient was seen in the preoperative holding area. The right knee was marked to confirm the correct operative site. He was seen by anesthesia. He received Ancef 2 g IV prophylactic antibiotics within 1 hour of incision time. He was brought back to the OR. General anesthesia induced without difficulty. Right lower extremity prepped and draped in the usual sterile fashion. Timeout performed to confirm right knee arthroscopy on patient Magdy Mcdonald. I made an anterolateral viewing portal with an 11 blade scalpel. Arthroscope was introduced into the knee joint. I then made an anterior medial portal localizing this with a spinal needle and this incision was made with the 11 blade as well. Dilated with a trocar. Diagnostic arthroscopy commenced. Evaluation of the medial compartment revealed complex tear posterior horn medial meniscus with undersurface flap tear and significant fraying of the inner edge. We performed a partial medial meniscectomy using a straight biter and a 3.5 mm resector shaver to resect the undersurface flap tear. We resected the inner third of the posterior horn the medial meniscus to remove the fraying back to a smooth stable border. There were some grade II-III chondromalacia central aspect of the trochlea that was treated with a shaver to remove any unstable flaps back to a smooth stable border. Mild grade I-II chondromalacia central aspect of the medial tibial plateau debrided as well. Cruciate ligaments were seen to be intact. He was placed in the [id number] position. Evaluation of the lateral compartment revealed fraying of the inner edge of the lateral meniscus that was debrided with a shaver but no significant lateral meniscus tear. Very minimal chondromalacia of the lateral compartment. Evaluation of the patellofemoral compartment revealed some diffuse grade II chondromalacia of the trochlea with no significant cartilage flaps and no full-thickness cartilage loss. At this time arthroscopy instruments were removed from the joint. Arthroscopy fluid suctioned and drained from the joint. Portals were closed with 4-0 Monocryl subcuticular sutures. I injected 20 cc of half percent Naropin from the superolateral approach for local anesthetic. Sterile dressings applied 4 x 4's, Steri-Strips, ABD, soft roll and an Ashkan bandage. Anesthesia reversed without difficulty and transferred to recovery in stable condition. All sponge needle counts correct x2. Tourniquet time (min): 0 Condition: stable Disposition: PACU Specimens:: None Complications:: None
--- NOTE | 2022-08-02 09:15 | SUR.PHASEII ---
Reviewed DC paperwork w/ patient and family members. Pt sent home w/ crutches and incentive spirometer. Instructed pt on proper use of IS, pt demonstrated proper use.
--- NOTE | 2022-08-02 09:46 | EXP.ANES.I ---
[facility] Anesthesia Record Part I Anesthesia Record I Intake, IV Amount: 1,000 Estimated blood loss (mL): 0 Urine output (mL): 0 Blood Products used (#): none Blood Pressure: 113/76 SaO2: 93 Pulse Rate: 63 Respiratory Rate: 16 Temperature: 97.4 F Patient is:: Drowsy and Stable Stable to PACU at:: 09:45
--- NOTE | 2022-08-02 13:03 | EXP.ANES.II ---
[facility] Anesthesia Record Part II Anesthesia Record Part II Discharge Time: 08:55 Destination: Surgical Day Care (OP Surgery) PACU nurse assessment reviewed?: Yes Patient Condition:: Good Anesthesia Complications:: None Swallowing reflex intact?: Yes Cyanosis?: No Blood Pressure: 130/79 Pulse Rate: 67 Temperature: 97.9 F Mental Status: Alert & Oriented Pain level:: 4 Nausea and/or vomitting:: None Intake, IV Amount: 0
== END 2022-08-02 09:30 | disposition home or self-care (01) ==
PROVIDERS: PCP Internal Medicine Adolescent Medicine; Visit Provider Orthopaedic Surgery
PROC: (CPT 29870; principal; 2022-08-02 07:30)
DX: M25.561 Pain in right knee (principal); F17.210 Nicotine dependence, cigarettes, uncomplicated; M17.0 Bilateral primary osteoarthritis of knee; I10 Essential (primary) hypertension; M23.221 Derangement of posterior horn of medial meniscus due to old tear or injury, right knee; Z79.899 Other long term (current) drug therapy; M94.261 Chondromalacia, right knee
CPT/HCPCS: 29881; 96374; J2405

== ENCOUNTER → 2023-02-22 09:13 | Outpatient (POV) | payer OTHER, SELFPAY ==
--- NOTE | 2023-02-22 10:13 | EXP.PAIN.OV ---
HPI Data of Consult Patient: new to practice Consult date: 02/22/23 Requesting Physician: Ele Christianson APRN Primary Care Provider: Augustin Brown MD Consult Narrative Reason for consult: Low back pain, bilateral leg pain History of present illness: Mr. Mcdonald is a 53 year old male who presents today as a new patient. He is a referral from Dr. Brown's office. Today he rates his pain a 10 out of 10. Patient states that his pain is primarily in his bilateral legs. He does describe this as a constant aching sensation that is worse with increased activity or ambulation. He also states that he experiences swelling and discoloration into his lower extremities. He states that he also has cramps that will wake him up in the middle of the night or even cause difficulty falling asleep due to the pain. Patient states that he does see a roadside mechanic in [place] Dr. Mackay and they have done diagnostics looking at his veins and arteries into his legs. He stated that some he was told had a little narrowing however does not know exact specifics or what it was called. Patient states his pain can be very tender to touch and does have a history of even SI related pain. He states the pain will frequently cause his left leg to give out. He states the pain does interfere with his ability perform activities of daily living such as cooking and cleaning. Patient has tried [id number] Tylenol and ibuprofen along with heat and ice and physical therapy in the past with no improvement. Patient is interested in any help we may be able to provide. His Sridhar has been reviewed and is appropriate. CC: Ele Christianson APRN [facility] Disclaimer: The information contained in this section may have been updated after the patient was seen, as this information can be updated by other users. Medical History Dyspnea Hyperlipidemia Hypertension Mitral regurgitation Rheumatoid arthritis Surgical History No significant past surgical history Family History Other Family history of cancer Family history of diabetes mellitus type II Family history of hypertension Social History Smoking Status: Current every day smoker tobacco type: cigarettes packs per day: 1 alcohol intake: never substance use type: denies use current occupational status: unemployed Travel in the last 8 weeks: None adopted: No caregiver/support person: No foster care: No household members: significant other housing: house lives independently: Yes marital status: single current occupational exposures/hazards: No caffeine: Yes special sally needs: No agree to transfusion: No do you feel safe at home: Yes victim of physical abuse: No victim of emotional abuse: No victim of sexual abuse: No would you like helpful sources: No Review of Systems Review of Systems Review of systems:: pertinent systems reviewed and negative unless documented below Review of systems (narrative): Review of Systems: General: No recent weight changes, no fever, no sleep disturbances Respiratory: No cough, no shortness of air, no recurring pulmonary infections Cardiovascular/peripheral vascular: No chest pain, no palpitations, no edema, no shortness of breath Gastrointestinal: No new onset incontinence, normal bowel movements reported Genitourinary: No new onset incontinence Musculoskeletal: Low back pain, bilateral leg pain Psychiatric: [Normal mood/affect] Neurological: [Denies weakness in extremities], [denies balance issues] Meds Home Medications and Allergies Home Medications Medication Instructions Recorded Confirmed Type aspirin 81 mg tablet,delayed 81 mg PO DAILY CAD 01/01/21 09/28/22 History release cholecalciferol (vitamin D
[2023-02-22 10:25] VITALS: BP 183/100; PULSE 90; RESP 18; O2SAT 94; BMI 47.5
== END | disposition home or self-care (01) ==
PROVIDERS: PCP Internal Medicine Adolescent Medicine; Visit Provider Nurse Practitioner Family
DX: M54.42 Lumbago with sciatica, left side (principal); G89.29 Other chronic pain; M79.604 Pain in right leg; M79.605 Pain in left leg
CPT/HCPCS: 99202; G0463

== ENCOUNTER → 2023-03-03 12:28 | Outpatient (CLI) | payer OTHER, SELFPAY ==
--- NOTE | 2023-03-03 12:48 | XR_ITS ---
FINAL REPORT CLINICAL HISTORY: [facility] [place] LEG PAIN FINDINGS: LUMBAR SPINE Five views demonstrate no acute fracture. There are mild degenerative changes with osteophytes. There is no malalignment. IMPRESSION: Mild degenerative changes. Reviewed, Interpreted and Dictated by Adolfo Brock III, MD Transcribed by Svetlana Olivares Authenticated and [facility]
== END ==
PROVIDERS: PCP Internal Medicine Adolescent Medicine; Visit Provider Nurse Practitioner Family
DX: M54.50 Low back pain, unspecified (principal); M79.661 Pain in right lower leg; M79.662 Pain in left lower leg
CPT/HCPCS: 72110

== ENCOUNTER → 2023-03-08 13:08 | Outpatient (POV) | payer OTHER, SELFPAY ==
--- NOTE | 2023-03-08 13:24 | EXP.PAIN.SOA ---
[facility] Pain Management SOAP Note Subjective:: Patient is a pleasant 53-year-old male who presents today for x-ray follow-up. We are currently treating the patient for low back pain, bilateral leg pain, chronic pain syndrome. Today he rates his pain a 7 out of 10. Patient denies any new trauma or injury. He states he continues to have chronic pain in his low back and legs. Patient at our last visit was prescribed ropinirole 0.25 mg at bedtime. Patient states that it did make him a little drowsy and that he took the medication for 3 days. He states that he did have stomach upset and did not even end up vomiting and that was the only change made. Patient discontinued this medication and went back to his normal habits without the nausea and vomiting. He does state that he is scheduled for his MRI on March 22. his Sridhar has been reviewed and is appropriate. Review of Systems: General: No recent weight changes, no fever, no sleep disturbances Respiratory: No cough, no shortness of air, no recurring pulmonary infections Cardiovascular/peripheral vascular: No chest pain, no palpitations, no edema, no shortness of breath Gastrointestinal: No new onset incontinence, normal bowel movements reported Genitourinary: No new onset incontinence Musculoskeletal: Low back pain, bilateral leg pain Psychiatric: [Normal mood/affect] Neurological: [Denies weakness in extremities], [denies balance issues] Objective:: Physical Exam: General: Alert and oriented x3, no acute distress, pleasant and cooperative Lungs: Respirations even and unlabored, symmetrical chest expansion Eyes: PERRL Musculoskeletal: Flexion and extension of lumbar [spine] somewhat guarded secondary to pain, [antalgic gait noted] Neurological: Speech clear, no gross sensory deficit Assessment:: Degenerative disc disease of lumbar spine with lumbar radiculopathy symptoms, chronic pain syndrome Plan:: Patient continues to experience pain in his low back and legs with limited range of motion. I discussed with the patient that we will wait to get his lumbar MRI imaging before deciding what are the best options for his care. Patient will return to clinic in 3 weeks for reevaluation of symptoms and plan of care. Patient has been instructed to contact the clinic with any concerns before the next appointment. Dr. Ravi has reviewed this note and agrees with this plan of care. This note was dictated using voice recognition software and make contain errors or omissions. [facility] Disclaimer: The information contained in this section may have been updated after the patient was seen, as this information can be updated by other users. Medical History Dyspnea Hyperlipidemia Hypertension Mitral regurgitation Rheumatoid arthritis Surgical History No significant past surgical history Family History Other Family history of cancer Family history of diabetes mellitus type II Family history of hypertension Social History (Updated 02/22/23 @ 10:25 by Chiara Comer RN) Smoking Status: Current every day smoker tobacco type: cigarettes packs per day: 1 alcohol intake: never substance use type: denies use current occupational status: unemployed Travel in the last 8 weeks: None adopted: No caregiver/support person: No foster care: No household members: significant other housing: house lives independently: Yes marital status: single current occupational exposures/hazards: No caffeine: Yes special sally needs: No agree to transfusion: No do you feel safe at home: Yes victim of physical abuse: No victim of emotional abuse: No victim of sexual abuse: No would you like helpful sources: No
[2023-03-08 13:25] VITALS: BP 131/86; PULSE 102; RESP 20; O2SAT 95; BMI 48.3
== END ==
PROVIDERS: PCP Internal Medicine Adolescent Medicine; Visit Provider Nurse Practitioner Family
DX: M51.16 Intervertebral disc disorders with radiculopathy, lumbar region (principal); G89.4 Chronic pain syndrome
CPT/HCPCS: 99212; G0463

== ENCOUNTER → 2023-03-22 17:04 | Outpatient (CLI) | payer OTHER, SELFPAY | LOC: RAD 17:04 | PROVIDERS: PCP Internal Medicine Adolescent Medicine; Visit Provider Nurse Practitioner Family | DX: M54.50 Low back pain, unspecified (principal); M79.604 Pain in right leg; M79.605 Pain in left leg ==

== ENCOUNTER → 2023-03-30 14:16 | Outpatient (POV) | payer OTHER, SELFPAY ==
[2023-03-30 14:43] VITALS: BP 137/84; PULSE 95; RESP 22; O2SAT 95; BMI 47.9
--- NOTE | 2023-03-30 14:44 | A.OFFVIS_ITS ---
[facility] Pain Management SOAP Note Subjective:: Patient is a pleasant 53-year-old male who presents today for follow-up. We are currently treating the patient for degenerative disc disease of lumbar spine with lumbar radiculopathy symptoms, chronic pain syndrome. Today he rates his pain a 9 out of 10. Patient denies any new trauma or injury. He does state that he was unable to tolerate his MRI of his lumbar spine. Patient states he has severe claustrophobia and that tried but ended up having a panic attack and did not do this imaging. Patient states he continues to have constant back and leg pain that is worse with increased ambulation or range of movement. Patient does have a cardiac history and sees a doctor in [place]. Patient states he has tried and failed conservative therapy such as oral medications, heat and ice, topicals, at home stretching and exercise for longer than 6 weeks. Patient has been prescribed oral pain medication such as Percocet however he could not tolerate these due to nausea. Patient does also state that he is even had fluid pills for his legs however those made him sick to his stomach. Patient was given a 2-week supply of ropinirole in the past however this made his stomach upset and stopped taking. Patient does state that he would still like to see what is going on in his lumbar spine. Patient is requesting whether or not he could try gabapentin. Patient states that his sister has very similar symptoms and that this medication does significantly improve her pain on a daily basis. His Sridhar has been reviewed and is appropriate. Review of Systems: General: No recent weight changes, no fever, no sleep disturbances Respiratory: No cough, no shortness of air, no recurring pulmonary infections Cardiovascular/peripheral vascular: No chest pain, no palpitations, no edema, no shortness of breath Gastrointestinal: No new onset incontinence, normal bowel movements reported Genitourinary: No new onset incontinence Musculoskeletal: Low back pain, leg pain Psychiatric: [Normal mood/affect] Neurological: [Denies weakness in extremities], [denies balance issues] Objective:: Physical Exam: General: Alert and oriented x3, no acute distress, pleasant and cooperative Lungs: Respirations even and unlabored, symmetrical chest expansion Eyes: PERRL Musculoskeletal: Flexion and extension of lumbar [spine] somewhat guarded secondary to pain, [antalgic gait noted] Neurological: Speech clear, no gross sensory deficit Assessment:: Degenerative disc disease of lumbar spine with lumbar radiculopathy symptoms, chronic pain syndrome Plan:: Patient continues to have significant pain in his low back and legs. Patient did have limited range of motion of his lumbar spine during today's visit. I have counseled the patient that I will reorder an MRI without contrast of his lumbar spine to be done in an open MRI machine such as at [facility]. Patient agrees with this plan of care. I have reviewed over with the patient r egarding gabapentin. I will send in a prescription of gabapentin 100 mg 3 times a day and provide a 2-week supply of this medication. Patient has been counseled to contact our office if this does provide additional improvement. Patient will return to clinic in 1 month following his MRI imaging for reevaluation of symptoms and plan of care. Patient has been instructed to contact the clinic with any concerns before the next appointment. Dr. Ravi has reviewed this note and agrees with this plan of care. This note was dictated using voice recognition software and make contain errors or omissions. [facility] Disclaimer: The information contained in this section may have been updated after the patient was seen, as this information can be updated by other users. Medical History Dyspnea Hyperlipidemia Hypertension Mitral regurgitation Rheumatoid arthritis Surgical History No significant past surgical history Family History Other Family history of cancer Family history of diabetes mellitus type II Family history of hypertension Social History (Updated 02/22/23 @ 10:25 by Chiara Comer RN) Smoking Status: Current every day smoker tobacco type: cigarettes packs per day: 1 alcohol intake: never substance use type: denies use current occupational status: unemployed Travel in the last 8 weeks: None adopted: No caregiver/support person: No foster care: No household members: significant other housing: house lives independently: Yes marital status: single current occupational exposures/hazards: No caffeine: Yes special sally needs: No agree to transfusion: No do you feel safe at home: Yes victim of physical abuse: No victim of emotional abuse: No victim of sexual abuse: No would you like helpful sources: No
== END | disposition home or self-care (01) ==
PROVIDERS: PCP Internal Medicine Adolescent Medicine; Visit Provider Nurse Practitioner Family
DX: M51.16 Intervertebral disc disorders with radiculopathy, lumbar region (principal); G89.4 Chronic pain syndrome
CPT/HCPCS: 99212; G0463

== ENCOUNTER → 2023-04-17 10:33 | Outpatient (POV) | payer OTHER, SELFPAY ==
--- NOTE | 2023-04-17 11:09 | EXP.PAIN.SOA ---
[facility] Pain Management SOAP Note Subjective:: Patient is a pleasant 53-year-old male who presents today for MRI denial. We are currently treating the patient for degenerative disc disease of lumbar spine with lumbar radiculopathy symptoms, chronic pain syndrome. Today he rates his pain a 10 out of 10. Patient denies any new trauma or injury. Patient denies any change location or type of pain he experiences. Patient continues to have constant low back and leg pain. Patient has tried in the past conservative treatment such as oral medication, heat and ice, topicals, physical therapy in the past. Patient denies any recent physical therapy. At our last visit we did also send in a 2-week dose of gabapentin 100 mg 3 times a day. Patient does state that this did seem to make a big improvement. He does state that there were a few days that he would miss the afternoon pill and so that he had been taking 1 in the morning and 2 at bedtime. Patient is asking if that is okay. His Sridhar has been reviewed and is appropriate. Review of Systems: General: No recent weight changes, no fever, no sleep disturbances Respiratory: No cough, no shortness of air, no recurring pulmonary infections Cardiovascular/peripheral vascular: No chest pain, no palpitations, no edema, no shortness of breath Gastrointestinal: No new onset incontinence, normal bowel movements reported Genitourinary: No new onset incontinence Musculoskeletal: Low back pain Psychiatric: [Normal mood/affect] Neurological: [Denies weakness in extremities], [denies balance issues] Objective:: Physical Exam: General: Alert and oriented x3, no acute distress, pleasant and cooperative Lungs: Respirations even and unlabored, symmetrical chest expansion Eyes: PERRL Musculoskeletal: Flexion and extension of lumbar [spine] somewhat guarded secondary to pain, [antalgic gait noted] Neurological: Speech clear, no gross sensory deficit Assessment:: Degenerative disc disease of lumbar spine with lumbar radiculopathy symptoms, chronic pain syndrome Plan:: I have counseled the patient that I will order physical therapy evaluation and treatment for his low back And leg symptoms. I will also send in a refill of the gabapentin 100 mg 3 times a day and provide a 1 month supply of this medication. I have counseled the patient that he can take 1 in the morning and 2 at night. Patient will return to clinic in 1 month following physical therapy for reevaluation of symptoms and plan of care. Patient has been instructed to contact the clinic with any concerns before the next appointment. Dr. Ravi has reviewed this note and agrees with this plan of care. This note was dictated using voice recognition software and make contain errors or omissions. [facility] Disclaimer: The information contained in this section may have been updated after the patient was seen, as this information can be updated by other users. Medical History Dyspnea Hyperlipidemia Hypertension Mitral regurgitation Rheumatoid arthritis Surgical History No significant past surgical history Family History Other Family history of cancer Family history of diabetes mellitus type II Family history of hypertension Social History Smoking Status: Current every day smoker tobacco type: cigarettes packs per day: 1 alcohol intake: never substance use type: denies use current occupational status: unemployed Travel in the last 8 weeks: None adopted: No caregiver/support person: No foster care: No household members: significant other housing: house lives independently: Yes marital status: single current occupational exposures/hazards: No caffeine: Yes special sally needs: No agree to transfusion: No do you feel safe at home: Yes victim of physical abuse: No victim of emotional abuse: No victim of sexual abuse: No would you like helpful sources: No
[2023-04-17 14:01] VITALS: BP 105/75; PULSE 81; RESP 18; O2SAT 96; BMI 48.3
== END | disposition home or self-care (01) ==
PROVIDERS: PCP Internal Medicine Adolescent Medicine; Visit Provider Nurse Practitioner Family
DX: M51.16 Intervertebral disc disorders with radiculopathy, lumbar region (principal); G89.4 Chronic pain syndrome
CPT/HCPCS: 99212; G0463

== ENCOUNTER 2023-04-17 11:14 | Outpatient (CLI) | payer OTHER, SELFPAY ==
[2023-04-17 11:44] LABS: Basophils # 0.1 K/mm3 (0-0.2); Basophils % 1.5 % (0.1-2.0); Eosinophils # 0.2 K/mm3 (0.0-0.4); Eosinophils % 2.3 % (0.1-12.0); Hematocrit 52.9 % (42.0-52.0); Hemoglobin 17.1 g/dL (14.1-18.0); Lymphocytes # 2.4 K/mm3 (0.7-4.5); Lymphocytes % 28.1 % (10-50); Mean Corpuscular HGB Conc 32.3 g/dL (31.8-35.4); Mean Corpuscular Hemoglobin 31.1 pg (27.0-31.2); Mean Corpuscular Volume 96.2 fl (80-94); Mean Platelet Volume 8.5 fl (7.4-10.4); Monocytes # 0.7 K/mm3 (0.1-1.0); Monocytes % 8.3 % (1.7-9.3); Neutrophils # 5.1 K/mm3 (1.8-7.8); Neutrophils % 59.7 % (37.0-80.0); Platelet Count 287 K/mm3 (142-424); Red Cell Distribution Width 13.1 % (11.5-17.5); White Blood Count 8.5 K/mm3 (4.8-10.8)
[2023-04-21 01:08] LABS: D001-IgE D pteronyssinus <0.10 kU/L (Class 0); D002-IgE D farinae <0.10 kU/L (Class 0); E001-IgE Cat Dander <0.10 kU/L (Class 0); E005-IgE Dog Dander <0.10 kU/L (Class 0); E072-IgE Mouse Urine <0.10 kU/L (Class 0); G002-IgE Bermuda Grass <0.10 kU/L (Class 0); G006-IgE Timothy Grass <0.10 kU/L (Class 0); I006-IgE Cockroach, German <0.10 kU/L (Class 0); Immunoglobulin E, Total 394 IU/mL (6-495); M001-IgE Penicillium chrysogen <0.10 kU/L (Class 0); M002-IgE Cladosporium herbarum <0.10 kU/L (Class 0); M003-IgE Aspergillus fumigatus <0.10 kU/L (Class 0); M006-IgE Alternaria alternata <0.10 kU/L (Class 0); T001-IgE Maple/Box Elder <0.10 kU/L (Class 0); T003-IgE Common Silver Birch <0.10 kU/L (Class 0); T006-IgE Cedar, Mountain <0.10 kU/L (Class 0); T007-IgE Oak, White <0.10 kU/L (Class 0); T008-IgE Elm, American <0.10 kU/L (Class 0); T010-IgE Walnut <0.10 kU/L (Class 0); T011-IgE Maple Leaf Sycamore <0.10 kU/L (Class 0); T014-IgE Cottonwood <0.10 kU/L (Class 0); T015-IgE Ash, White <0.10 kU/L (Class 0); T022-IgE Pecan, Hickory <0.10 kU/L (Class 0); T070-IgE White Mulberry <0.10 kU/L (Class 0); W001-IgE Ragweed, Short <0.10 kU/L (Class 0); W011-IgE Thistle, Russian <0.10 kU/L (Class 0); W014-IgE Pigweed, Common <0.10 kU/L (Class 0); W018-IgE Sheep Sorrel <0.10 kU/L (Class 0)
== END 2023-04-17 23:59 ==
LOC: LAB 11:15
PROVIDERS: PCP Internal Medicine Adolescent Medicine; Visit Provider Internal Medicine Pulmonary Disease
DX: J45.909 Unspecified asthma, uncomplicated (principal); R06.09 Other forms of dyspnea; J44.9 Chronic obstructive pulmonary disease, unspecified
CPT/HCPCS: 36415; 82785; 85025; 86003

== ENCOUNTER 2023-05-11 08:00 | Outpatient (RCR) | payer OTHER, SELFPAY | END 2023-05-11 09:00 | disposition home or self-care (01) | LOC: PT 08:00 | PROVIDERS: Visit Provider Nurse Practitioner Family | DX: M54.50 Low back pain, unspecified (principal); M79.604 Pain in right leg; M79.605 Pain in left leg | CPT/HCPCS: 97014; 97110; 97140; 97163; G0283 ==

== ENCOUNTER 2023-05-18 10:52 | Outpatient (POV) | payer OTHER, SELFPAY ==
--- NOTE | 2023-05-18 11:10 | EXP.PAIN.SOA ---
[facility] Pain Management SOAP Note Subjective:: Patient is a pleasant 53-year-old male who presents today for medication refill and follow-up. We are currently treating the patient for degenerative disc disease of lumbar spine with lumbar radiculopathy symptoms, chronic pain syndrome. Today he rates his pain a 7 out of 10. Patient denies any new trauma or injury. He does state that he continues to have constant pain they are in his low back. He states he has been going to physical therapy and that is helping however there has been others that have caused worsening pain. Patient states that the therapist did I had the tens unit and in 1 area he had very little sensitivity and she had to turn it up extremely high in order for him to even feel it. Patient also states that 1 other area that she pressed on with palpation because significant severe hot poker like sensations to go into his back. Patient does state that the therapist was wanting an MRI as well due to the condition of his back before proceeding forward with certain exercises. Patient is currently managed with gabapentin 100 mg 3 times a day however he states that it helps but sometimes he will get confused and forget when he is taken the medication. He is requesting if we can just do it in 1 pill. He states that 1 night he did take all 3 tablets at bedtime and felt like he slept better with a better overall improvement the next day. His Sridhar has been reviewed and is appropriate. Review of Systems: General: No recent weight changes, no fever, no sleep disturbances Respiratory: No cough, no shortness of air, no recurring pulmonary infections Cardiovascular/peripheral vascular: No chest pain, no palpitations, no edema, no shortness of breath Gastrointestinal: No new onset incontinence, normal bowel movements reported Genitourinary: No new onset incontinence Musculoskeletal: Low back pain Psychiatric: [Normal mood/affect] Neurological: [Denies weakness in extremities], [denies balance issues] Objective:: Physical Exam: General: Alert and oriented x3, no acute distress, pleasant and cooperative Lungs: Respirations even and unlabored, symmetrical chest expansion Eyes: PERRL Musculoskeletal: Flexion and extension of lumbar [spine] somewhat guarded secondary to pain, [antalgic gait noted] Neurological: Speech clear, no gross sensory deficit Assessment:: Degenerative disc disease of lumbar spine with lumbar radiculopathy symptoms, chronic pain syndrome Plan:: I will send in a prescription of gabapentin 300 mg at bedtime and provide a 1 month supply of this medication. I will also resubmit for the lumbar MRI without contrast. Patient has tried and failed conservative therapy and is still going through current physical therapy with no additional improvement. Patient will return to clinic in 1 month for reevaluation of symptoms and plan of care. Patient has been instructed to contact the clinic with any concerns before the next appointment. Dr. Ravi has reviewed this note and agrees with this plan of care. This note was dictated using voice recognition software and make contain errors or omissions. [facility] Disclaimer: The information contained in this section may have been updated after the patient was seen, as this information can be updated by other users. Medical History Dyspnea Hyperlipidemia Hypertension Mitral regurgitation Rheumatoid arthritis Surgical History No significant past surgical history Family History Other Family history of cancer Family history of diabetes mellitus type II Family history of hypertension Social History Smoking Status: Current every day smoker tobacco type: cigarettes packs per day: 1 alcohol intake: never substance use type: denies use current occupational status: unemployed Travel in the last 8 weeks: None adopted: No caregiver/support person: No foster care: No household members: significant other housing: house lives independently: Yes marital status: single current occupational exposures/hazards: No caffeine: Yes special sally needs: No agree to transfusion: No do you feel safe at home: Yes victim of physical abuse: No victim of emotional abuse: No victim of sexual abuse: No would you like helpful sources: No
[2023-05-18 12:34] VITALS: BP 135/99; PULSE 82; RESP 18; O2SAT 95; BMI 47.7
== END 2023-05-18 23:59 | disposition home or self-care (01) ==
PROVIDERS: PCP Internal Medicine Adolescent Medicine; Visit Provider Nurse Practitioner Family
DX: M51.16 Intervertebral disc disorders with radiculopathy, lumbar region (principal); G89.4 Chronic pain syndrome
CPT/HCPCS: 99212; G0463

== ENCOUNTER 2023-06-15 09:18 | Outpatient (POV) | payer OTHER, SELFPAY ==
[2023-06-15 09:31] VITALS: BP 159/78; PULSE 74; RESP 20; BMI 48.7
--- NOTE | 2023-06-15 12:05 | A.OFFVIS_ITS ---
[facility] Pain Management SOAP Note Subjective:: Patient is a pleasant 53-year-old male who presents today for MRI follow-up. Today he rates his pain a 7 out of 10. Patient denies any new trauma or injury. States that he continues to have chronic pain throughout his low back and legs. Patient is currently managed with gabapentin 300 mg at bedtime. He does state that this has seemed to help however occasionally on really bad days he feels like he needs a little bit more medicine. His Sridhar has been reviewed and is appropriate. Review of Systems: General: No recent weight changes, no fever, no sleep disturbances Respiratory: No cough, no shortness of air, no recurring pulmonary infections Cardiovascular/peripheral vascular: No chest pain, no palpitations, no edema, no shortness of breath Gastrointestinal: No new onset incontinence, normal bowel movements reported Genitourinary: No new onset incontinence Musculoskeletal: Low back pain, bilateral leg pain Psychiatric: [Normal mood/affect] Neurological: [Denies weakness in extremities], [denies balance issues] Objective:: Physical Exam: General: Alert and oriented x3, no acute distress, pleasant and cooperative Lungs: Respirations even and unlabored, symmetrical chest expansion Eyes: PERRL Musculoskeletal: Flexion and extension of lumbar [spine] somewhat guarded secondary to pain, [antalgic gait noted] Neurological: Speech clear, no gross sensory deficit [place] diagnostic and open MRI May 27, 2023 Lumbar MRI without contrast Findings: There is a grade 1 retrolisthesis of L4 on L5. Disc desiccation most pronounced at the L4-L5 and L5-S1 where there is acute bony edema seen along the endplates of the L4-5 asymmetrically worse on the right where there is likely ongoing body endplate remodeling/micro trabecular fracturing. There is a small amount of indurated discal signal present in this region. There is a small amount of bone edema noted along the endplates at the L5-S1 level worse on the left. Conus terminates at the level of L1 approximately. There are more chronic degenerative endplate changes noted within the lower thoracic spine and upper lumbar spine with Schmorl's node formations. There is clumping of the nerve roots T12-L1: No significant findings L1-2: Small disc osteophyte complex formation with mild articular facet disease and ligamentum flavum hypertrophy. Mild canal narrowing and foraminal narrowing L2-3: No significant findings L3-4: Small disc osteophyte complex formation with mild articular facet disease. Mild canal narrowing and mild to moderate foraminal narrowing L4-5: Disc osteophyte complex formation with moderate articular facet disease. Moderate foraminal narrowing and mild canal narrowing L5-S1: Disc osteophyte complex formation with moderate articular facet disease. Moderate to severe foraminal narrowing and mild canal narrowing Assessment:: Degenerative disc disease of lumbar spine with lumbar radiculopathy symptoms, chronic pain syndrome Plan:: I have reviewed over the findings of the patient's lumbar MRI and have discussed with the patient due to his chronic symptoms that I do believe he would benefit from a lumbar epidural at the L5-S1 level. Risk and benefits were discussed with the patient however at this time he would like more time to think on this option. I have counseled the patient that I will send in refills of his gabapentin and change it to 300 mg twice a day as needed. Patient is agreeable to this plan of care. We will follow-up at his next visit if he would like to try a lumbar epidural. I have also discussed with patient in future he may benefit from a intrathecal pain pump or spinal cord stimulator trial. Patient will return to clinic in 1 month for reevaluation of symptoms and plan of care. Patient has been instructed to contact the clinic with any concerns before the next appointment. Dr. Ravi has reviewed this note and agrees with this plan of care. This note was dictated using voice recognition software and make contain errors or omissions. [facility] Disclaimer: The information contained in this section may have been updated after the patient was seen, as this information can be updated by other users. Medical History Dyspnea Hyperlipidemia Hypertension Mitral regurgitation Rheumatoid arthritis Surgical History No significant past surgical history Family History Other Family history of cancer Family history of diabetes mellitus type II Family history of hypertension Social History Smoking Status: Current every day smoker tobacco type: cigarettes packs per day: 1 alcohol intake: never substance use type: denies use current occupational status: other Travel in the last 8 weeks: None adopted: No caregiver/support person: No foster care: No household members: significant other housing: house lives independently: Yes marital status: single current occupational exposures/hazards: No caffeine: Yes special sally needs: No agree to transfusion: No do you feel safe at home: Yes victim of physical abuse: No victim of emotional abuse: No victim of sexual abuse: No would you like helpful sources: No
== END 2023-06-15 23:59 | disposition home or self-care (01) ==
PROVIDERS: PCP Internal Medicine Adolescent Medicine; Visit Provider Nurse Practitioner Family
DX: M51.16 Intervertebral disc disorders with radiculopathy, lumbar region (principal); G89.4 Chronic pain syndrome
CPT/HCPCS: 99212; G0463

== ENCOUNTER 2023-06-19 07:41 | Outpatient (CLI) | payer OTHER, SELFPAY ==
--- NOTE | 2023-06-19 07:42 | CT_ITS ---
FINAL REPORT TECHNIQUE: Thin section axial images were obtained through the lungs using a low-dose technique per lung cancer screening protocol. Reconstruction images were obtained using the axial data. Exam was performed using dose reduction technique. CLINICAL HISTORY: lung cancer screening, current smoke 1.5ppd, smoker 35 years COMPARISON: 01/27/2021 FINDINGS: CTDLvol: 2.90 DLP: 106.29 Current smoker 52 pack year history Lungs: Several less than 4 mm left lower lobe nodules are stable and presumed benign given stability for greater than 2 years. A 5 mm left lower lobe nodule seen on image 67 was not well-seen on the prior exam. There is a subpleural 3 mm right lower lobe nodule on image 56 which is unchanged. The lungs are otherwise clear. There is no consolidation. Lymph nodes: No thoracic lymphadenopathy. Mediastinum: Heart size is normal. Pleura/pericardium: No pleural or pericardial effusion. Other: No acute abnormality in the upper abdomen. IMPRESSION: New, 5 mm left lower lobe nodule. Other stable pulmonary nodules. Lung RADS: 2 Recommendation: 12-month follow-up low-dose chest CT. Reviewed, Interpreted and Dictated by Aimee Ceron MD Transcribed by Leslie Araya Authenticated and [facility]
== END 2023-06-19 23:59 ==
LOC: RAD 07:42
PROVIDERS: PCP Internal Medicine Adolescent Medicine; Visit Provider Internal Medicine Pulmonary Disease
DX: F17.210 Nicotine dependence, cigarettes, uncomplicated (principal); Z12.2 Encounter for screening for malignant neoplasm of respiratory organs; R06.09 Other forms of dyspnea
CPT/HCPCS: 71271; 94060; 94727; 94729

== ENCOUNTER 2023-07-13 14:27 | Outpatient (POV) | payer OTHER, SELFPAY ==
[2023-07-13 14:58] VITALS: BP 118/73; PULSE 89; RESP 20; O2SAT 96; BMI 45.9
--- NOTE | 2023-07-13 15:11 | A.OFFVIS_ITS ---
[facility] Pain Management SOAP Note Subjective:: Patient is a pleasant 53-year-old male who presents today for medication refill and follow-up. Today he rates his pain a 5 out of 10. Patient denies any new trauma or injury. Patient is currently managed with gabapentin 300 mg twice a day. He denies any side effects from this medication. At our last visit we did discuss that he may benefit from lumbar epidural as well as possible trial in the future. Patient states today he is doing overall well with the increased dosage of his gabapentin and feels like right now he is maintaining. His Sridhar has been reviewed and is appropriate. Review of Systems: General: No recent weight changes, no fever, no sleep disturbances Respiratory: No cough, no shortness of air, no recurring pulmonary infections Cardiovascular/peripheral vascular: No chest pain, no palpitations, no edema, no shortness of breath Gastrointestinal: No new onset incontinence, normal bowel movements reported Genitourinary: No new onset incontinence Musculoskeletal: Low back pain Psychiatric: [Normal mood/affect] Neurological: [Denies weakness in extremities], [denies balance issues] Objective:: Physical Exam: General: Alert and oriented x3, no acute distress, pleasant and cooperative Lungs: Respirations even and unlabored, symmetrical chest expansion Eyes: PERRL Musculoskeletal: Flexion and extension of lumbar [spine] somewhat guarded secondary to pain, [antalgic gait noted] Neurological: Speech clear, no gross sensory deficit Assessment:: Degenerative disc disease of lumbar spine with lumbar radiculopathy symptoms Plan:: I will refill the patient's gabapentin 300 mg twice a day and provide a 2-month supply of this medication. Patient will return to clinic in 2 months for reevaluation of symptoms and plan of care. Patient has been instructed to contact the clinic with any concerns before the next appointment. Dr. Ravi has reviewed this note and agrees with this plan of care. This note was dictated using voice recognition software and make contain errors or omissions. [facility] Disclaimer: The information contained in this section may have been updated after the patient was seen, as this information can be updated by other users. Medical History Dyspnea Hyperlipidemia Hypertension Mitral regurgitation Rheumatoid arthritis Surgical History No significant past surgical history Family History Other Family history of cancer Family history of diabetes mellitus type II Family history of hypertension Social History Smoking Status: Current every day smoker tobacco type: cigarettes packs per day: 1 alcohol intake: never substance use type: denies use current occupational status: other Travel in the last 8 weeks: None adopted: No caregiver/support person: No foster care: No household members: significant other housing: house lives independently: Yes marital status: single current occupational exposures/hazards: No caffeine: Yes special sally needs: No agree to transfusion: No do you feel safe at home: Yes victim of physical abuse: No victim of emotional abuse: No victim of sexual abuse: No would you like helpful sources: No
== END 2023-07-13 23:59 | disposition home or self-care (01) ==
PROVIDERS: PCP Internal Medicine Adolescent Medicine; Visit Provider Nurse Practitioner Family
DX: M51.16 Intervertebral disc disorders with radiculopathy, lumbar region (principal)
CPT/HCPCS: 99212; G0463

== ENCOUNTER 2023-10-11 15:21 | Outpatient (POV) | payer OTHER, SELFPAY ==
[2023-10-11 15:47] VITALS: BP 149/86; PULSE 86; RESP 16; O2SAT 95; BMI 45.9
--- NOTE | 2023-10-11 16:02 | EXP.PAIN.SOA ---
[facility] Disclaimer: The information contained in this section may have been updated after the patient was seen, as this information can be updated by other users. Medical History Dyspnea Hyperlipidemia Hypertension Mitral regurgitation Rheumatoid arthritis Surgical History No significant past surgical history Family History Other Family history of cancer Family history of diabetes mellitus type II Family history of hypertension Social History Smoking Status: Current every day smoker tobacco type: cigarettes packs per day: 1 alcohol intake: never substance use type: denies use current occupational status: other Travel in the last 8 weeks: None adopted: No caregiver/support person: No foster care: No household members: significant other housing: house lives independently: Yes marital status: single current occupational exposures/hazards: No caffeine: Yes special sally needs: No agree to transfusion: No do you feel safe at home: Yes victim of physical abuse: No victim of emotional abuse: No victim of sexual abuse: No would you like helpful sources: No PM Subjective & Objective Subjective Subjective:: Patient is a pleasant 53-year-old male who presents today for medication refill and follow-up. Today he rates his pain a 6 out of 10. Patient does state that overall his back is doing well and much more manageable. Patient does state from our last visit he has ended up losing 30 pounds and is trying to eat better and that his sugar is better. Patient does state that he is having more pain in and around his right knee which is a chronic finding. Patient denies any new injuries in this location. Patient does also state he has had a couple teeth pulled and is going to be having some additional ones removed in future. Patient has tried injections in his knee in the past however they were very temporary and did not provide significant relief. Patient is currently managed with gabapentin 300 mg twice a day and did not any side effects from this medication. Patient does still have more tablets from his last prescription with about 10 remaining. Patient states he has not had to take this every single day twice a day. Patient is requesting if we get in a low-dose pain medication that he could just take as needed and not anything on a daily basis. His Sridhar has been reviewed and is appropriate. Review of Systems: General: No recent weight changes, no fever, no sleep disturbances Respiratory: No cough, no shortness of air, no recurring pulmonary infections Cardiovascular/peripheral vascular: No chest pain, no palpitations, no edema, no shortness of breath Gastrointestinal: No new onset incontinence, normal bowel movements reported Genitourinary: No new onset incontinence Musculoskeletal: Low back pain, right knee pain Psychiatric: [Normal mood/affect] Neurological: [Denies weakness in extremities], [denies balance issues] Pain at rest (0-10 scale): 6 Objective Objective:: Physical Exam: General: Alert and oriented x3, no acute distress, pleasant and cooperative Lungs: Respirations even and unlabored, symmetrical chest expansion Eyes: PERRL Musculoskeletal: Flexion and extension of lumbar [spine] somewhat guarded secondary to pain, [antalgic gait noted] Neurological: Speech clear, no gross sensory deficit Has patient had previous pain injection?: No Conservative treatment options previously tried: Home exercise plan Length of treatment: Longer than 6 weeks and Prescription medications Length of treatment: Longer than 6 weeks Meds Home Medications and Allergies Home Medications Medication Instructions Recorded Confirmed Type aspirin 81 mg tablet,delayed 81 mg PO DAILY CAD 01/01/21 10/11/23 History release cholecalciferol (vitamin D3) 125 5,000 unit PO DAILY Supplement 01/01/21 10/11/23 History mcg (5,000 unit) capsule ergocalciferol (vitamin D2) 1,250 50,000 unit PO QWEEK Supplement 01/01/21 10/11/23 History mcg (50,000 unit) capsule albuterol sulfate 90 mcg/actuation 1 inh inhalation QID PRN shortness 01/04/21 10/11/23 Rx aerosol inhaler of breath or wheezing #8.5 grams amlodipine 2.5 mg tablet 2.5 mg PO DAILY High blood 03/09/21 10/11/23 Rx pressure #30 tabs atorvastatin 40 mg tablet 40 mg PO DAILY Cholesterol #30 tabs 03/09/21 10/11/23 Rx furosemide 20 mg tablet 20 mg PO DAILY Fluid #30 tabs 03/09/21 10/11/23 Rx lisinopril 20 mg tablet 20 mg PO BID High blood pressure 04/16/21 10/11/23 History budesonide-formoterol HFA 160 2 puff inhalation BID Breathing 02/23/22 10/11/23 History mcg-4.5 mcg/actuation aerosol problems inhaler (Symbicort) spironolactone 25 mg tablet 25 mg PO DAILY Fluid 02/23/22 10/11/23 History (Aldactone) hydrocodone 5 mg-acetaminophen 325 1 tab PO Q4-6H PRN pain #20 tabs 08/04/22 10/11/23 Rx mg tablet ondansetron HCl 4 mg tablet 4 mg PO Q6H PRN nausea and 08/04/22 10/11/23 Rx vomiting #20 tabs budesonide-formoterol HFA 160 2 puff inhalation BID 90 days 04/03/23 10/11/23 Rx mcg-4.5 mcg/actuation aerosol #10.2 grams inhaler (Symbicort) ipratropium 0.5 mg-albuterol 3 mg 3 ml inhalation QID PRN shortness 04/03/23 10/11/23 Rx (2.5 mg base)/3 mL nebulization of breath or wheezing 90 days #270 soln mL gabapentin 100 mg capsule 100 mg PO TID #90 caps 04/17/23 10/11/23 Rx gabapentin 300 mg capsule 300 mg PO BID #60 caps 07/13/23 10/11/23 Rx gabapentin 300 mg capsule 300 mg PO BID #60 caps 09/18/23 10/11/23 Rx New Prescriptions to Start Prescriptions: Allergies Allergy/AdvReac Type Severity Reaction Status Date / Time No Known Allergies Allergy Verified 04/03/23 16:18 Assessment and Plan *Assessment and plan (1) Low back pain: Status: Acute Qualifiers: Chronicity: chronic Back pain laterality: bilateral Sciatica presence: with sciatica Sciatica laterality: sciatica of left side Qualified Code(s): M54.42 - Lumbago with sciatica, left side; G89.29 - Other chronic pain Category: Medical Code(s): M54.50 - Low back pain, unspecified (2) Bilateral leg pain: Status: Acute Category: Medical Code(s): M79.604 - Pain in right leg; M79.605 - Pain in left leg (3) Primary osteoarthritis of knees, bilateral: Status: Acute Category: Medical Code(s): M17.0 - Bilateral primary osteoarthritis of knee (4) Internal derangement of right knee: Status: Acute Category: Medical Code(s): M23.91 - Unspecified internal derangement of right knee Plan Patient is experiencing significant pain in his right knee as well as still some chronic pain in his low back. I have discussed with patient that I will send a 3-month supply of his gabapentin and after reviewing his kidney function we will do 30 tablets of tramadol 50 mg. Patient will return to clinic in 3 months for reevaluation of symptoms and plan of care. Risks and benefits of the medication have been explained in detail to the patient. The patient does understand the risk of dependence on the medication when given over a prolonged period. Patient has been advised of risks of oversedation with the prescribed medication. Narcan has been offered to the paitent in the event of oversedation. Patient has been advised that a family member should also be educated regarding administration of Narcan. The patient has been advised to consult with his/her primary care provider and pharmacist regarding drug-drug interaction of medications currently prescribed. Patient has been prescribed a controlled substance after being counseled on the medication, medication safety, and possible side effects. Opioid contract was reviewed and signed by the patient, and that they have agreed to all of the terms set forth by our compliance program. Patient has been instructed to contact the clinic with any concerns before the next appointment. Dr. Ravi has reviewed this note and agrees with this plan of care. This note was dictated using voice recognition software and make contain errors or omissions.
== END 2023-10-11 23:59 | disposition home or self-care (01) ==
PROVIDERS: PCP Internal Medicine Adolescent Medicine; Visit Provider Nurse Practitioner Family
DX: M54.42 Lumbago with sciatica, left side (principal); G89.29 Other chronic pain; M79.604 Pain in right leg; M79.605 Pain in left leg; M17.0 Bilateral primary osteoarthritis of knee; M23.91 Unspecified internal derangement of right knee; F17.210 Nicotine dependence, cigarettes, uncomplicated; Z79.899 Other long term (current) drug therapy
CPT/HCPCS: 99212; G0463

== ENCOUNTER 2024-01-11 08:29 | Outpatient (POV) | payer MEDICAID, SELFPAY ==
--- NOTE | 2024-01-11 08:37 | A.OFFVIS_ITS ---
[facility] Disclaimer: The information contained in this section may have been updated after the patient was seen, as this information can be updated by other users. Medical History Dyspnea Hyperlipidemia Hypertension Mitral regurgitation Rheumatoid arthritis Surgical History No significant past surgical history Family History Other Family history of cancer Family history of diabetes mellitus type II Family history of hypertension Social History Smoking Status: Current every day smoker tobacco type: cigarettes packs per day: 1 alcohol intake: never substance use type: denies use current occupational status: other Travel in the last 8 weeks: None adopted: No caregiver/support person: No foster care: No household members: significant other housing: house lives independently: Yes marital status: single current occupational exposures/hazards: No caffeine: Yes special sally needs: No agree to transfusion: No do you feel safe at home: Yes victim of physical abuse: No victim of emotional abuse: No victim of sexual abuse: No would you like helpful sources: No PM Subjective & Objective Subjective Subjective:: Patient is a pleasant 53-year-old male who presents today for medication refill and 3-month follow-up. Today he rates his pain a 8 out of 10. He denies any new injury or trauma from his last visit. He states today that it is still the same aches and pains including his low back with radiating symptoms into his legs and bilateral knees. Patient states overall he has been doing pretty good the last 3 months up until last week. He states for what ever reason he just felt like he had a lot more pain and that moving around was more difficult. He does state that his sugar and blood pressure are doing much better and that he has still been losing weight and now is weighing around 300 pounds. Patient is currently managed with gabapentin 300 mg twice a day and was given at his last visit 30 tablets of tramadol 50 mg as needed. 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 Patient does state that he has recently had his teeth pulled and that they did give him some Lortab and that that worked well for him. He states he does not take that on a regular basis but it did seem to help overall his low back and leg symptoms somewhat better. He is requesting if we can do possibly some of the Lortab instead of tramadol and not anything every day just as needed. His Sridhar has been reviewed and is appropriate. Review of Systems: General: No recent weight changes, no fever, no sleep disturbances Respiratory: No cough, no shortness of air, no recurring pulmonary infections Cardiovascular/peripheral vascular: No chest pain, no palpitations, no edema, no shortness of breath Gastrointestinal: No new onset incontinence, normal bowel movements reported Genitourinary: No new onset incontinence Musculoskeletal: Low back pain, right knee pain Psychiatric: [Normal mood/affect] Neurological: [Denies weakness in extremities], [denies balance issues] Pain at rest (0-10 scale): 8 Objective Objective:: Physical Exam: General: Alert and oriented x3, no acute distress, pleasant and cooperative Lungs: Respirations even and unlabored, symmetrical chest expansion Eyes: PERRL Musculoskeletal: Flexion and extension of lumbar [spine] somewhat guarded secondary to pain, [antalgic gait noted] Neurological: Speech clear, no gross sensory deficit Has patient had previous pain injection?: No Conservative treatment options previously tried: Prescription medications Length of treatment: Longer than 12 weeks Meds Home Medications and Allergies Home Medications ?Medication ?Instructions ?Recorded ?Confirmed ?Type aspirin 81 mg tablet,delayed 81 mg PO DAILY CAD 01/01/21 10/11/23 History release cholecalciferol (vitamin D3) 125 5,000 unit PO DAILY Supplement 01/01/21 10/11/23 History mcg (5,000 unit) capsule ergocalciferol (vitamin D2) 1,250 50,000 unit PO QWEEK Supplement 01/01/21 10/11/23 History mcg (50,000 unit) capsule albuterol sulfate 90 mcg/actuation 1 inh inhalation QID PRN shortness 01/04/21 10/11/23 Rx aerosol inhaler of breath or wheezing #8.5 grams amlodipine 2.5 mg tablet 2.5 mg PO DAILY High blood 03/09/21 10/11/23 Rx pressure #30 tabs atorvastatin 40 mg tablet 40 mg PO DAILY Cholesterol #30 tabs 03/09/21 10/11/23 Rx furosemide 20 mg tablet 20 mg PO DAILY Fluid #30 tabs 03/09/21 10/11/23 Rx lisinopril 20 mg tablet 20 mg PO BID High blood pressure 04/16/21 10/11/23 History budesonide-formoterol HFA 160 2 puff inhalation BID Breathing 02/23/22 10/11/23 History mcg-4.5 mcg/actuation aerosol problems inhaler (Symbicort) spironolactone 25 mg tablet 25 mg PO DAILY Fluid 02/23/22 10/11/23 History (Aldactone) hydrocodone 5 mg-acetaminophen 325 1 tab PO Q4-6H PRN pain #20 tabs 08/04/22 10/11/23 Rx mg tablet ondansetron HCl 4 mg tablet 4 mg PO Q6H PRN nausea and 08/04/22 10/11/23 Rx vomiting #20 tabs budesonide-formoterol HFA 160 2 puff inhalation BID 90 days 04/03/23 10/11/23 Rx mcg-4.5 mcg/actuation aerosol #10.2 grams inhaler (Symbicort) ipratropium 0.5 mg-albuterol 3 mg 3 ml inhalation QID PRN shortness 04/03/23 10/11/23 Rx (2.5 mg base)/3 mL nebulization of breath or wheezing 90 days #270 soln mL gabapentin 100 mg capsule 100 mg PO TID #90 caps 04/17/23 10/11/23 Rx gabapentin 300 mg capsule 300 mg PO BID #60 caps 07/13/23 10/11/23 Rx gabapentin 300 mg capsule 300 mg PO BID #60 caps 10/11/23 Rx tramadol 50 mg tablet 50 mg PO DAILY #30 tabs 10/11/23 Rx New Prescriptions to Start Prescriptions: Allergies Allergy/AdvReac Type Severity Reaction Status Date / Time No Known Allergies Allergy Verified 04/03/23 16:18 Assessment and Plan *Assessment and plan (1) Low back pain: Status: Acute Qualifiers: Back pain laterality: bilateral Chronicity: chronic Sciatica laterality: sciatica of left side Sciatica presence: with sciatica Qualified Code(s): M54.42 - Lumbago with sciatica, left side; G89.29 - Other chronic pain Category: Medical Code(s): M54.50 - Low back pain, unspecified (2) Bilateral leg pain: Status: Acute Category: Medical Code(s): M79.604 - Pain in right leg; M79.605 - Pain in left leg (3) Bilateral knee pain: Status: Acute Category: Medical Code(s): M25.561 - Pain in right knee; M25.562 - Pain in left knee Plan We will refill the patient's gabapentin and provide a 3-month supply of this medication. I will send in a prescription of [place] 5 mg with 30 tablets to be used as needed throughout the next 3 months. Patient will return to clinic in 3 months for reevaluation of symptoms and plan of care. Risks and benefits of the medication have been explained in detail to the patient. The patient does understand the risk of dependence on the medication when given over a prolonged period. Patient has been advised of risks of oversedation with the prescribed medication. Narcan has been offered to the paitent in the event of oversedation. Patient has been advised that a family member should also be educated regarding administration of Narcan. The patient has been advised to consult with his/her primary care provider and pharmacist regarding drug-drug interaction of medications currently prescribed. Patient has been prescribed a controlled substance after being counseled on the medication, medication safety, and possible side effects. Opioid contract was reviewed and signed by the patient, and that they have agreed to all of the terms set forth by our compliance program. Patient has been instructed to contact the clinic with any concerns before the next appointment. Dr. Ravi has reviewed this note and agrees with this plan of care. This note was dictated using voice recognition software and make contain errors or omissions.
[2024-01-11 09:58] VITALS: BP 123/84; PULSE 80; RESP 18; O2SAT 94; BMI 43.0
== END 2024-01-11 23:59 | disposition home or self-care (01) ==
PROVIDERS: PCP Internal Medicine Adolescent Medicine; Visit Provider Nurse Practitioner Family
DX: M54.42 Lumbago with sciatica, left side (principal); G89.29 Other chronic pain; M79.604 Pain in right leg; M79.605 Pain in left leg; M25.561 Pain in right knee; M25.562 Pain in left knee; F17.210 Nicotine dependence, cigarettes, uncomplicated; Z79.899 Other long term (current) drug therapy
CPT/HCPCS: 99212; G0463

== ENCOUNTER 2024-05-06 08:39 | Outpatient (POV) | payer MEDICAID, SELFPAY ==
[2024-05-06 09:04] VITALS: BP 137/78; PULSE 78; RESP 16; O2SAT 96; BMI 43.0
--- NOTE | 2024-05-06 09:04 | A.OFFVIS_ITS ---
[facility] Disclaimer: The information contained in this section may have been updated after the patient was seen, as this information can be updated by other users. Medical History Dyspnea Hyperlipidemia Hypertension Mitral regurgitation Rheumatoid arthritis Surgical History No significant past surgical history Family History Other Family history of cancer Family history of diabetes mellitus type II Family history of hypertension Social History Smoking Status: Current every day smoker tobacco type: cigarettes packs per day: 1 alcohol intake: never substance use type: denies use current occupational status: other Travel in the last 8 weeks: None adopted: No caregiver/support person: No foster care: No household members: significant other housing: house lives independently: Yes marital status: single current occupational exposures/hazards: No caffeine: Yes special sally needs: No agree to transfusion: No do you feel safe at home: Yes victim of physical abuse: No victim of emotional abuse: No victim of sexual abuse: No would you like helpful sources: No PM Subjective & Objective Subjective Subjective:: Patient is a pleasant 54-year-old male who presents today for medication refill and follow-up. Today he rates his pain a 7 out of 10. He denies any new trauma or injury. Patient is currently managed with gabapentin 300 mg twice a day and [place] 5 mg daily. Patient does state that he still just uses these medications as needed. He states he is still been staying very active and continuing to try and lose weight patient denies any side effects from these medications. His Sridhar has been reviewed and is appropriate. Review of Systems: General: No recent weight changes, no fever, no sleep disturbances Respiratory: No cough, no shortness of air, no recurring pulmonary infections Cardiovascular/peripheral vascular: No chest pain, no palpitations, no edema, no shortness of breath Gastrointestinal: No new onset incontinence, normal bowel movements reported Genitourinary: No new onset incontinence Musculoskeletal: Low back pain Psychiatric: [Normal mood/affect] Neurological: [Denies weakness in extremities], [denies balance issues] Pain at rest (0-10 scale): 7 Objective Objective:: Physical Exam: General: Alert and oriented x3, no acute distress, pleasant and cooperative Lungs: Respirations even and unlabored, symmetrical chest expansion Eyes: PERRL Musculoskeletal: Flexion and extension of lumbar [spine] somewhat guarded secondary to pain, [antalgic gait noted] Neurological: Speech clear, no gross sensory deficit Has patient had previous pain injection?: No Conservative treatment options previously tried: Home exercise plan Length of treatment: Longer than 12 weeks Meds Home Medications and Allergies Home Medications ?Medication ?Instructions ?Recorded ?Confirmed ?Type aspirin 81 mg tablet,delayed 81 mg PO DAILY CAD 01/01/21 01/11/24 History release cholecalciferol (vitamin D3) 125 5,000 unit PO DAILY Supplement 01/01/21 01/11/24 History mcg (5,000 unit) capsule ergocalciferol (vitamin D2) 1,250 50,000 unit PO QWEEK Supplement 01/01/21 01/11/24 History mcg (50,000 unit) capsule albuterol sulfate 90 mcg/actuation 1 inh inhalation QID PRN shortness 01/04/21 01/11/24 Rx aerosol inhaler of breath or wheezing #8.5 grams amlodipine 2.5 mg tablet 2.5 mg PO DAILY High blood 03/09/21 01/11/24 Rx pressure #30 tabs atorvastatin 40 mg tablet 40 mg PO DAILY Cholesterol #30 tabs 03/09/21 01/11/24 Rx furosemide 20 mg tablet 20 mg PO DAILY Fluid #30 tabs 03/09/21 01/11/24 Rx lisinopril 20 mg tablet 20 mg PO BID High blood pressure 04/16/21 01/11/24 History budesonide-formoterol HFA 160 2 puff inhalation BID Breathing 02/23/22 01/11/24 History mcg-4.5 mcg/actuation aerosol problems inhaler (Symbicort) spironolactone 25 mg tablet 25 mg PO DAILY Fluid 02/23/22 01/11/24 History (Aldactone) hydrocodone 5 mg-acetaminophen 325 1 tab PO Q4-6H PRN pain #20 tabs 08/04/22 01/11/24 Rx mg tablet ondansetron HCl 4 mg tablet 4 mg PO Q6H PRN nausea and 08/04/22 01/11/24 Rx vomiting #20 tabs ipratropium 0.5 mg-albuterol 3 mg 3 ml inhalation QID PRN shortness 04/03/23 01/11/24 Rx (2.5 mg base)/3 mL nebulization of breath or wheezing 90 days #270 soln mL gabapentin 300 mg capsule 300 mg PO BID #60 caps 07/13/23 01/11/24 Rx tramadol 50 mg tablet 50 mg PO DAILY #30 tabs 10/11/23 01/11/24 Rx gabapentin 300 mg capsule 300 mg PO BID #60 caps 01/11/24 Rx hydrocodone 5 mg-acetaminophen 325 1 tab PO DAILYP PRN pain #30 tabs 01/11/24 Rx mg tablet New Prescriptions to Start Prescriptions: Allergies Allergy/AdvReac Type Severity Reaction Status Date / Time No Known Allergies Allergy Verified 04/03/23 16:18 Assessment and Plan *Assessment and plan (1) Low back pain: Status: Acute Qualifiers: Chronicity: chronic Back pain laterality: bilateral Sciatica presence: with sciatica Sciatica laterality: sciatica of left side Qualified Code(s): M54.42 - Lumbago with sciatica, left side; G89.29 - Other chronic pain Category: Medical Code(s): M54.50 - Low back pain, unspecified (2) Bilateral leg pain: Status: Acute Category: Medical Code(s): M79.604 - Pain in right leg; M79.605 - Pain in left leg Plan I will refill the patient's gabapentin and [place] and provide a 1 month supply of these medications. Patient will return to clinic in 1 month for reevaluation of symptoms and plan of care. We did do a urine drug screen in office today. Risks and benefits of the medication have been explained in detail to the patient. The patient does understand the risk of dependence on the medication when given over a prolonged period. Patient has been advised of risks of oversedation with the prescribed medication. Narcan has been offered to the paitent in the event of oversedation. Patient has been advised that a family member should also be educated regarding administration of Narcan. The patient has been advised to consult with his/her primary care provider and pharmacist regarding drug-drug interaction of medications currently prescribed. Patient has been prescribed a controlled substance after being counseled on the medication, medication safety, and possible side effects. Opioid contract was reviewed and signed by the patient, and that they have agreed to all of the terms set forth by our compliance program. A UDS is needed to verify patient's compliance with our office pain contract. This is ordered based off specific treatments related to chronic pain with the potential to abuse certain medications. Patient has been instructed to contact the clinic with any concerns before the next appointment. Dr. Ravi has reviewed this note and agrees with this plan of care. This note was dictated using voice recognition software and make contain errors or omissions.
[2024-05-06 09:57] LABS: Opiate Screen,Urine Negative ng/ml (<300)
[2024-05-06 09:58] LABS: Phencyclidine Screen,Urine Negative ng/ml (<25)
[2024-05-06 10:01] LABS: Amphetamine/Metha Screen,Urine Negative ng/ml (<1000)
[2024-05-06 10:02] LABS: Barbiturates Screen,Urine Negative ng/ml (<200)
[2024-05-06 10:03] LABS: Benzodiazepines Screen,Urine Negative ng/ml (<200)
[2024-05-06 10:05] LABS: Cannabinoid Screen,Urine Negative ng/ml (<50)
[2024-05-06 10:06] LABS: Cocaine Screen,Urine Positive ng/ml (<300); Methadone Screen,Urine Negative ng/ml (<300)
--- NOTE | 2024-05-08 13:45 | PC.NURSE ---
Pt called to check on his pain medication prescription. Provider was notified, states she has cancelled the prescription for pt and will not be writing that prescription anymore for pt r/t pt was positive for cocaine on urine drug screen on 05/06/24. Provider asked that I notify pt of this. Stated to pt on the phone that related to his urine drug screen being positive provider has cancelled his prescription and states will no longer be writing that prescription for pt. Pt states well alrighty then, thank you and hung the phone up.
== END 2024-05-06 23:59 | disposition home or self-care (01) ==
PROVIDERS: PCP Internal Medicine Adolescent Medicine; Visit Provider Nurse Practitioner Family
DX: M54.42 Lumbago with sciatica, left side (principal); G89.29 Other chronic pain; M79.604 Pain in right leg; M79.605 Pain in left leg; F17.210 Nicotine dependence, cigarettes, uncomplicated
CPT/HCPCS: 80307; 80361; 80365; 99212; G0463; G0480

== ENCOUNTER 2024-07-02 16:20 | Emergency (ER) | payer MEDICAID, SELFPAY ==
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
[2024-07-02 16:15] VITALS: BP 136/67; PULSE 82; RESP 10; O2SAT 96
[2024-07-02 16:20] VITALS: BP 136/67; PULSE 82; RESP 20; TEMP 37.2; O2SAT 94
[2024-07-02 16:39] LABS: Alanine Aminotransferase 21 U/L (12-78); Albumin Level 4.2 g/dl (3.5-5.0); Alkaline Phosphatase 86 U/L (38-126); Anion Gap 15.4 mEq/L (5-15); Aspartate Amino Transferase 35 U/L (17-59); Bilirubin,Total 0.9 mg/dl (0.2-1.3); Blood Urea Nitrogen 28 mg/dl (9-20); Calcium 9.1 mg/dl (8.4-10.2); Carbon Dioxide 26 mmol/L (22.0-30.0); Chloride 97 mmol/L (98-107); Estimated Glomerular Filt Rate 64 ml/min (>60); Ethyl Alcohol < 10 mg/dl (0-10); GFR (African American) 77 ML/MIN (>60); Globulin 4.1 g/dL (1.3-3.2); Glucose 134 mg/dl (74-100); Potassium 4.4 mmoL/L (3.5-5.1); Sodium 134 mmol/L (136-145); Total Protein,Serum 8.3 g/dl (6.3-8.2)
[2024-07-02 16:50] LABS: Basophils # 0.1 K/mm3 (0-0.2); Eosinophils # 0.2 K/mm3 (0.0-0.4); Eosinophils % 2.2 % (0.1-12.0); Hematocrit 51.3 % (42.0-52.0); Hemoglobin 16.8 g/dL (14.1-18.0); Lymphocytes # 3.1 K/mm3 (0.7-4.5); Lymphocytes % 28.5 % (10-50); Mean Corpuscular HGB Conc 32.7 g/dL (31.8-35.4); Mean Corpuscular Hemoglobin 28.8 pg (27.0-31.2); Mean Platelet Volume 10.5 fl (7.4-10.4); Monocytes # 1.1 K/mm3 (0.1-1.0); Neutrophils # 6.3 K/mm3 (1.8-7.8); Neutrophils % 57.8 % (37.0-80.0); Platelet Count 371 K/mm3 (142-424); Red Blood Count 5.83 M/mm3 (4.60-6.20); Red Cell Distribution Width 13.8 % (11.5-17.5); White Blood Count 10.9 K/mm3 (4.8-10.8)
[2024-07-02 16:55] LABS: Activated Partial Thrombo Time 28.5 seconds (22.8-30.6); INR 0.99 (0.9-1.1); Prothrombin Time 11.1 seconds (10.1-12.5)
[2024-07-02] MEDS: BACITRACIN ZINC OINT 30GM TUBE TP (17:19)
[2024-07-02] MEDS: TET/DIPHTH/PERT-ADULT 0.5ML SYRINGE 0.5 ML IM (17:23)
[2024-07-02 17:31] VITALS: BP 136/67; PULSE 107; PULSE 82; RESP 18; RESP 20; TEMP 37.2; O2SAT 96; O2SAT 98; BMI 44.6
== END 2024-07-02 17:34 | disposition home or self-care (01) ==
PROVIDERS: Emergency Provider Emergency Medicine; PCP Internal Medicine Adolescent Medicine
DX: S01.00XA Unspecified open wound of scalp, initial encounter (principal); T14.90XA Injury, unspecified, initial encounter; I25.10 Atherosclerotic heart disease of native coronary artery without angina pectoris; F17.210 Nicotine dependence, cigarettes, uncomplicated; V87.7XXA Person injured in collision between other specified motor vehicles (traffic), initial encounter; Z23 Encounter for immunization
CPT/HCPCS: 13121; 71045; 72170; 80053; 80320; 85025; 85610; 85730; 90471; 90715; 99284